=== PATIENT | female | born 1940 | race American Indian/Alaskan Native ===

== ENCOUNTER 2019-11-22 15:55 | Inpatient (IN) | payer MEDICARE ==
[2019-11-22] MEDS ORDERED: FAMOTIDINE 20 MG/2 ML INJ IV ONE (16:42)
[2019-11-22] MEDS ORDERED: ONDANSETRON 4 MG/2 ML INJ IV ONE (16:42)
[2019-11-22] MEDS ORDERED: MORPHINE 4 MG/1 ML INJ IV ONE ×2 (16:42→18:58)
[2019-11-22] MEDS ORDERED: SODIUM CHLORIDE 0.9% 1000 ML 1,000 ML IV ONE ×2 (16:43→18:44)
--- NOTE | 2019-11-22 16:47 | Emergency Department Report ---
ED Abdominal Pain HPI - General Chief Complaint: Abdominal Pain Stated Complaint: ABD PAIN PUI?: No Time Seen by Provider: 11/22/19 16:28 Source: patient, EMS Mode of arrival: Stretcher Limitations: No Limitations - History of Present Illness Initial Comments: 79-year-old female with no significant past medical history presents to the hospital complaining of epigastric pain x3 days. Pain is described as a moderate to severe constant pressure without aggravating or alleviating factors. Patient has decreased p.o. intake secondary to pain today. He denies nausea, vomiting, melena or hematochezia, hematemesis, diarrhea, or fever. Last bowel movement this morning was normal. Previous abdominal surgeries include appendectomy. Patient has medications filled on November 20 from an [facility] center. They include omeprazole, dicyclomine, vistaril, and polyethylene glycol 3350. Pt is not started taking the medication. Patient denies urinary symptoms. Patient also denies alcohol intake. MD Complaint: abdominal pain Severity scale (0 -10): 10 - Related Data Allergies Allergy/AdvReac Type Severity Reaction Status Date / Time No Known Allergies Allergy Unverified 11/22/19 17:17 ED Review of Systems ROS: Stated complaint: ABD PAIN Other details as noted in HPI Comment: All other systems reviewed and negative ED Past Medical Hx - Past Medical History Previous Medical History?: No Additional medical history: Congenital Heart Murmur - Surgical History Past Surgical History?: Yes Additional Surgical History: Appendectomy - Social History Smoking Status: Never Smoker Substance Use Type: None ED Physical Exam - General Limitations: No Limitations - Other Other exam information: General: No acute distress Head: Atraumatic Eyes: normal appearance ENT: Moist mucous membranes Neck: Normal appearance, no midline tenderness Chest: Clear to auscultation bilaterally CV: Regular rate and rhythm Abdomen: Soft, normal bowel sounds, generalized abdominal tenderness greatest in epigastric area and rlq. + rebound in rlq and epigastric area. Back: Normal inspection Extremity: Normal inspection, full range of motion Neuro: Alert O x 3, no facial asymmetry, speech clear, no gross motor sensory deficit Psych: Appropriate behavior Skin: No rash ED Course Vital Signs 11/22/19 11/22/19 11/22/19 16:12 16:15 16:16 Temperature 97.7 F Pulse Rate 73 79 82 Respiratory 22 18 23 Rate Blood Pressure Blood Pressure 134/74 [Left] O2 Sat by Pulse 98 97 97 Oximetry 11/22/19 11/22/19 11/22/19 16:20 16:30 16:46 Temperature 97.8 F Pulse Rate 74 71 74 Respiratory 23 20 Rate Blood Pressure 134/74 134/74 137/50 Blood Pressure [Left] O2 Sat by Pulse 97 97 Oximetry 11/22/19 11/22/19 11/22/19 17:00 17:15 17:30 Temperature Pulse Rate 74 74 74 Respiratory 26 H 27 H 16 Rate Blood Pressure 147/47 161/75 144/57 Blood Pressure [Left] O2 Sat by Pulse 99 98 97 Oximetry 11/22/19 11/22/19 17:46 18:48 Temperature Pulse Rate 83 84 Respiratory 21 18 Rate Blood Pressure 150/60 150/60 Blood Pressure [Left] O2 Sat by Pulse 98 96 Oximetry - Consultations Consultation #1: 11/22/19 19:[address] Nieves on-call surgeon. She will evaluate patient 11/22/19 19:37 Case d/w Cardiology Dr Rebolledo. will consult, elevation can be nonspecific. repeat to be drawn soon. ED Medical Decision Making - Lab Data Result diagrams: 11/22/19 16:50 11/22/19 16:50 - EKG Data -: EKG Interpreted by [facility] EKG shows normal: sinus rhythm, ST-T waves (lvh, repol abnl, no stemi) Rate: normal - Radiology Data Radiology results: report reviewed CT ABDOMEN AND PELVIS WITH CONTRAST INDICATION / CLINICAL INFORMATION: MAIN: gen abd pain greatest in epigastric 100cc [id number]. TECHNIQUE: Axial CT images were obtained through the abdomen and pelvis after IV contrast. All CT scans at this location are performed using CT dose reduction for ALARA by means of automated exposure control. COMPARISON: None available. FINDINGS: LOWER CHEST: Mild bibasilar atelectasis. LIVER: No significant abnormality. GALLBLADDER: Gallbladder is distended. No gallstones or wall thickening. BILE DUCTS: No significant abnormality. PANCREAS: No significant abnormality. SPLEEN: No significant abnormality. ADRENALS: No significant abnormality. RIGHT KIDNEY and URETER: No significant abnormality. LEFT KIDNEY and URETER: No significant abnormality. STOMACH and SMALL BOWEL: Small sliding-type hiatal hernia. There is a perforated ulcer of the distal stomach/gastric antrum. This ulcer is best seen on axial series 2 images 57-60. No distal small bowel abnormality. COLON: No significant abnormality. APPENDIX: No significant abnormality. PERITONEUM: Small amount of free fluid throughout the abdomen and pelvis, especially in the right upper quadrant. Moderate amount of pneumoperitoneum related to the perforated gastric ulcer. No fluid collection. LYMPH NODES: No significant adenopathy. AORTA and ARTERIES: No significant abnormality. IVC and VEINS: No significant abnormality. URINARY BLADDER: No significant abnormality. REPR ODUCTIVE ORGANS: No significant abnormality. ADDITIONAL FINDINGS: None. SKELETAL SYSTEM: No significant abnormality. IMPRESSION: 1. Perforated peptic ulcer of the distal stomach/gastric antrum with moderate pneumoperitoneum and small amount of free fluid in the abdomen and pelvis. - Medical Decision Making Patient provided initially Pepcid morphine, and Zofran. She required additional morphine Protonix also provided after CT report of perforated peptic ulcer. Patient n.p.o. IV fluids provided for dehydration. Zosyn provided empirically for perforated viscus. Patient also noted to have mild troponin elevation without ST elevation on EKG. Repeat troponin pending. Cardiology consulted. Aspirin contraindicated given active perforated peptic ulcer. hospitalist to admit. - Differential Diagnosis PUD, biliary colic, headache aneurysm, MO, constipation Critical Care Time: No Critical care attestation.: If time is entered above; I have spent that time in minutes in the direct care of this critically ill patient, excluding procedure time. ED Disposition Clinical Impression: Perforated peptic ulcer, Troponin level elevated Disposition: OP ADMIT IP TO THIS HOSP Is pt being admited?: Yes Condition: Stable Time of Disposition: 19:41 (Dr Davis/hosp)
[2019-11-22 17:22] LABS: Basophils % (Auto) 0.5 % (0.0-1.8); Hematocrit 45.8 % (30.3-42.9); Hemoglobin 15.1 gm/dl (10.1-14.3); Lymphocytes # (Auto) 1.1 K/mm3 (1.2-5.4); Lymphocytes % (Auto) 14.8 % (13.4-35.0); Mean Corpuscular HGB Conc 33 % (30-34); Mean Corpuscular Volume 93 fl (79-97); Monocytes # (Auto) 0.3 K/mm3 (0.0-0.8); Monocytes % (Auto) 4.1 % (0.0-7.3); Platelet Count 232 K/mm3 (140-440); Red Blood Count 4.94 M/mm3 (3.65-5.03); Red Cell Distribution Width 14.7 % (13.2-15.2)
[2019-11-22 17:37] LABS: Alanine Aminotransferase 12 units/L (7-56); Albumin 3.9 g/dL (3.9-5); BUN/Creatinine Ratio 53; Blood Urea Nitrogen 32 mg/dL (7-17); Calcium 9.5 mg/dL (8.4-10.2); Hemolysis Index 2
[2019-11-22] MEDS ORDERED: PANTOPRAZOLE 40 MG INJ IV ONE (19:14)
[2019-11-22] MEDS ORDERED: PIPERACIL/TAZOBACTA 4.5/NS 100 4.5 GM/100 ML VIAL IV ONE (19:19)
--- NOTE | 2019-11-22 19:19 | Cat Scan Report ---
CT ABDOMEN AND PELVIS WITH CONTRAST INDICATION / CLINICAL INFORMATION: MAIN: gen abd pain greatest in epigastric 100cc [id number]. TECHNIQUE: Axial CT images were obtained through the abdomen and pelvis after IV contrast. All CT scans at this location are performed using CT dose reduction for ALARA by means of automated exposure control. COMPARISON: None available. FINDINGS: LOWER CHEST: Mild bibasilar atelectasis. LIVER: No significant abnormality. GALLBLADDER: Gallbladder is distended. No gallstones or wall thickening. BILE DUCTS: No significant abnormality. PANCREAS: No significant abnormality. SPLEEN: No significant abnormality. ADRENALS: No significant abnormality. RIGHT KIDNEY and URETER: No significant abnormality. LEFT KIDNEY and URETER: No significant abnormality. STOMACH and SMALL BOWEL: Small sliding-type hiatal hernia. There is a perforated ulcer of the distal stomach/gastric antrum. This ulcer is best seen on axial series 2 images 57-60. No distal small danyelle l abnormality. COLON: No significant abnormality. APPENDIX: No significant abnormality. PERITONEUM: Small amount of free fluid throughout the abdomen and pelvis, especially in the right upp er quadrant. Moderate amount of pneumoperitoneum related to the perforated gastric ulcer. No fluid co llection. LYMPH NODES: No significant adenopathy. AORTA and ARTERIES: No significant abnormality. IVC and VEINS: No significant abnormality. URINARY BLADDER: No significant abnormality. REPRODUCTIVE ORGANS: No significant abnormality. ADDITIONAL FINDINGS: None. SKELETAL SYSTEM: No significant abnormality. IMPRESSION: 1. Perforated peptic ulcer of the distal stomach/gastric antrum with moderate pneumoperitoneum and sm all amount of free fluid in the abdomen and pelvis. CRITICAL RESULT: Time of Discovery (RESPIRATORY SCIENTIST/CDT): 6:10 PM Time of Communication (RESPIRATORY SCIENTIST/CDT): 6:13 PM Licensed Practitioner Receiving Report: Dr. Paul in the ED Read Back Performed: Not applicable. Signer Name: Javier Hsieh MD Signed: 11/22/2019 7:14 PM Workstation Name: [email or web address]
[2019-11-22 19:43] LABS: Chol/HDL Ratio 4.67 %
[2019-11-22] MEDS ORDERED: HYDROmorphone 1 MG/1 ML INJ IV ONE ×2 (20:56→22:49)
--- NOTE | 2019-11-22 21:37 | Consultation ---
History of Present Illness Consult date: 11/22/19 Reason for consult: abdominal pain - History of present illness History of present illness: 79 year old female with no significant self reported medical history presented to ED with a 7 day history of abdominal pain. She rates it as 10/10 for seven days and came to the hospital after not getting relief with OTC pain medication. The pain is worse in the epigastric and RLQ areas. She was seen at an intermediate care and prescribed omeprazole, and bentyl for which she has not taken. She denies any nausea or vomiting. CT scan showed free air consistent with perforated gastric ulcer. small amount of free fluid. Past History Past Surgical History: appendectomy Social history: no significant social history Medications and Allergies Allergies Allergy/AdvReac Type Severity Reaction Status Date / Time No Known Allergies Allergy Unverified 11/22/19 17:17 Review of Systems - Constitutional no weight loss, no weight gain - Cardiovascular no chest pain, no orthopnea - Respiratory no cough - Gastrointestinal abdominal pain, constipation, no nausea, no vomiting, no melena, no hematochezia Exam Vital Signs Pulse Resp Pulse Ox 73 22 98 11/22/19 16:12 11/22/19 16:12 11/22/19 16:12 - General physical appearance Positive: well developed, no distress, moderate pain - Respiratory Positive: normal expansion, normal respiratory effort - Cardiovascular Rhythm: regular Heart Sounds: Present: S1 & S2 - Extremities Extremities: no ischemia - Abdomen Abdomen: Present: soft, guarding. Absent: tender, distended, rebound, rigid - Neurologic Neurologic: alert and oriented to time, place and person - Psychiatric Psychiatric: appropriate mood/affect, cooperative Results - Labs 11/22/19 16:50 11/22/19 16:50 Abnormal lab results 11/22/19 11/22/19 11/22/19 Range/Units 16:50 16:50 16:50 Hgb 15.1 H (10.1-14.3) gm/dl Hct 45.8 H (30.3-42.9) % Lymph # 1.1 L (1.2-5.4) K/mm3 Seg Neutrophils % 80.6 H (40.0-70.0) % Carbon Dioxide 18 L (22-30) mmol/L BUN 32 H (7-17) mg/dL Creatinine 0.6 L (0.7-1.2) mg/dL Glucose 115 H (65-100) mg/dL Troponin T 0.049 H (0.00-0.029) ng/mL Cholesterol 229 H (50-199) mg/dL LDL Cholesterol Direct 168 H (50-130) mg/dL 11/22/19 Range/Units 19:53 Hgb (10.1-14.3) gm/dl Hct (30.3-42.9) % Lymph # (1.2-5.4) K/mm3 Seg Neutrophils % (40.0-70.0) % Carbon Dioxide (22-30) mmol/L BUN (7-17) mg/dL Creatinine (0.7-1.2) mg/dL Glucose (65-100) mg/dL Troponin T 0.043 H (0.00-0.029) ng/mL Cholesterol (50-199) mg/dL LDL Cholesterol Direct (50-130) mg/dL Diabetes panel 11/22/19 11/22/19 Range/Units 16:50 16:50 Sodium 138 (137-145) mmol/L Potassium 3.8 (3.6-5.0) mmol/L Chloride 100.1 (98-107) mmol/L Carbon Dioxide 18 L (22-30) mmol/L BUN 32 H (7-17) mg/dL Creatinine 0.6 L (0.7-1.2) mg/dL Glucose 115 H (65-100) mg/dL Calcium 9.5 (8.4-10.2) mg/dL AST 20 (5-40) units/L ALT 12 (7-56) units/L Alkaline Phosphatase 68 (35-129) units/L Total Protein 7.0 (6.3-8.2) g/dL Albumin 3.9 (3.9-5) g/dL Triglycerides 91 (2-149) mg/dL HDL Cholesterol 49 (40-59) mg/dL Calcium panel 11/22/19 Range/Units 16:50 Calcium 9.5 (8.4-10.2) mg/dL Albumin 3.9 (3.9-5) g/dL Pituitary panel 11/22/19 Range/Units 16:50 Sodium 138 (137-145) mmol/L Potassium 3.8 (3.6-5.0) mmol/L Chloride 100.1 (98-107) mmol/L Carbon Dioxide 18 L (22-30) mmol/L BUN 32 H (7-17) mg/dL Creatinine 0.6 L (0.7-1.2) mg/dL Glucose 115 H (65-100) mg/dL Calcium 9.5 (8.4-10.2) mg/dL Adrenal panel 11/22/19 Range/Units 16:50 Sodium 138 (137-145) mmol/L Potassium 3.8 (3.6-5.0) mmol/L Chloride 100.1 (98-107) mmol/L Carbon Dioxide 18 L (22-30) mmol/L BUN 32 H (7-17) mg/dL Creatinine 0.6 L (0.7-1.2) mg/dL Glucose 115 H (65-100) mg/dL Calcium 9.5 (8.4-10.2) mg/dL Total Bilirubin 0.80 (0.1-1.2) mg/dL AST 20 (5-40) units/L ALT 12 (7-56) units/L Alkaline Phosphatase 68 (35-129) units/L Total Protein 7.0 (6.3-8.2) g/dL Albumin 3.9 (3.9-5) g/dL - Imaging CT scan - abdomen: report reviewed, image reviewed CT scan - pelvis: report reviewed, image reviewed Assessment and Plan 79 year old female with perforated viscous. likely gastric ulcer. Afbrile, stable, no leukycytosis who appears non toxic. Discussed condition and treatment with patient who asked if she had to have surgery. Because she is stable, and other metric still normal there is a potential that her perforation has already sealed. Ordered CT scan with gastrograffin to further evaluate need for emergent surgery vs close observation and reassessment. Pt admitted to hospital and will review CT scan to determine next plan of care. Pt expressed understanding.
[2019-11-22] MEDS ORDERED: HYDROmorphone 1 MG/1 ML INJ ONE (22:52)
--- NOTE | 2019-11-22 22:58 | Cat Scan Report ---
CT ABDOMEN AND PELVIS WITHOUT CONTRAST HISTORY: MAIN: perforated PUD, 30CC GASTROGRAFIN IN 20OZ WATER. COMPARISON: CT abdomen/pelvis from earlier today TECHNIQUE: CT images of the abdomen and pelvis were obtained without administration of intravenous co ntrast. All CT scans at this location are performed using CT dose reduction for ALARA by means of au tomated exposure control. FINDINGS: Lungs/bones: There is mild streaky bibasilar airspace disease once again. Degenerative changes are p resent throughout the spine and pelvis with no acute osseous abnormality identified. Abdomen/pelvis: There is again a perforated ulcer in the region of the duodenal bulb with free spill of contrast into the region of the gallbladder fossa and along the lower margin of the liver, as wel l as the right paracolic cutter. Moderate volume free air again noted. The liver, gallbladder, spleen, pancreas, adrenals, and kidneys show no acute abnormality. Urinary bladder is distended with contrast. There is a small amount of contrast spill into the pelvis . The uterus is unremarkable. No acute colonic abnormality identified. IMPRESSION: 1. Redemonstration of perforation and inflammatory change in the region of the duodenal bulb, with mo derate free air and contrast spill ultimately tracking along the right paracolic gutter. Signer Name: Federico Torres MD Signed: 11/22/2019 10:53 PM Workstation Name: [id number]
--- NOTE | 2019-11-22 23:26 | Event Note ---
Date: 11/22/19 CT scan shows free extravasation of contrast. discussed with patient. Booking patient for surgery. She signed informed consent who expressed understanding of risks and benefits.
[2019-11-23] MEDS ORDERED: ONDANSETRON 4 MG/2 ML INJ ONE (00:23)
[2019-11-23] MEDS ORDERED: fentaNYL 100 MCG/2 ML INJ ONE ×2 (00:23→01:36)
[2019-11-23] MEDS ORDERED: SUCCINYLCHOLINE CHLORIDE 200 MG/10 ML INJ MDV ONE (00:23)
[2019-11-23] MEDS ORDERED: LIDOCAINE MPF (2%) 20 MG/1 ML VIAL 5 ML ONE (00:23)
[2019-11-23] MEDS ORDERED: ROCURONIUM 50 MG/5 ML INJ IV ONE (00:23)
[2019-11-23] MEDS ORDERED: propofoL 200 MG/20 ML VIAL IV ONE (00:24)
--- NOTE | 2019-11-23 00:24 | Anesthesia Consultation ---
Anesthesia Consult and Med Hx Date of service: 11/23/19 - Airway Anesthetic Teeth Evaluation: Poor (Several missing, all solid per patient) ROM Head & Neck: Adequate Mental/Hyoid Distance: Adequate Mallampati Class: Class II Intubation Access Assessment: Probably Good - Pulmonary Exam CTA: Yes - Cardiac Exam Cardiac Exam: RRR - Pre-Operative Health Status ASA Pre-Surgery Classification: ASA2, Emergency Proposed Anesthetic Plan: General
--- NOTE | 2019-11-23 00:25 | Anesthesia Day of Surgery ---
Anesthesia Day of Surgery - Day of Surgery Patient Examined: Yes Patient H&P Reviewed: Yes Patient is NPO: Yes
[2019-11-23 00:28] LABS: Bilirubin,Urine NEG (Negative); Blood,Urine NEG (Negative); Color,Urine Yellow (Yellow); Mucus,Urine 1+ /HPF; Protein,Urine <15 mg/dL mg/dL (Negative); Urobilinogen,Urine < 2.0 mg/dL (<2.0)
[2019-11-23] MEDS ORDERED: LIDOCAINE (1%) 10 MG/1 ML VIAL 20 ML MDV ONE (00:44)
[2019-11-23] MEDS ORDERED: BUPIVACAINE-EPINEPHRINE/PF 0.5%-1:200,000 (30 ML) VIAL INFILTRATI ONE ×2 (00:44→01:24)
[2019-11-23] MEDS ORDERED: ceFAZolin 1 GM VIAL ONE (00:59)
[2019-11-23] MEDS ORDERED: metroNIDAZOLE/NS 500 MG/100 ML 500 MG/100 ML BAG IV ONE (01:05)
[2019-11-23] MEDS ORDERED: LIDOCAINE (1%) 10 MG/1 ML VIAL 20 ML MDV INFILTRATI ONE (01:24)
[2019-11-23] MEDS ORDERED: SODIUM CHLORIDE 0.9% IRRIG SOLN 2000 ML IR ONE (01:25)
[2019-11-23] MEDS ORDERED: SODIUM CHLORIDE 0.9% IRR 1,000 ML BOTTLE IR ONE (01:25)
[2019-11-23] MEDS ORDERED: PHENYLEPHRINE/NS 1,000 MCG/10 ML SYRINGE (OR USE) IV ONE (02:00)
[2019-11-23] MEDS ORDERED: NEOSTIGMINE 10MG/10 ML INJ MDV ONE (02:02)
[2019-11-23] MEDS ORDERED: GLYCOPYRROLATE 0.4 MG/2 ML INJ ONE (02:02)
--- NOTE | 2019-11-23 02:35 | Operative Report ---
Operative Report Operative Report: Date: November 23, 2019 Surgeon: gabriel Nieves MD Brand Analyst surgeon: Adrienne Galindo DO Procedure:1. Diagnostic laparoscopy 2. Rex patch repair of perforated gastric ulcer 3. Abdominal lavage Anesthesia: General with endotracheal tube intubation EBL: Less than 5 mL Preop diagnosis: Perforated viscus Postop diagnosis: Perforated gastric ulcer Findings: Less than 1 cm punctate perforation on the anterior side of the pylorus with free abdominal fluid Indication: Patient is an 79-year-old female who presented to the emergency room with a one-week history of worsening epigastric pain. CT scan showed free air consistent with suspected perforated gastric ulcer. Patient had no leukocytosis, no tachycardia, and elevated troponins. At this time it was decided that her perforation may have sealed and so we decided to repeat CT scan with oral contrast that showed extravasation confirming active leak from perforation. Patient was then consented for emergent procedure. Details of procedure: Patient was brought into the OR suite and laid in supine position. Bilateral lower extremity SCDs were placed. General anesthesia was induced via successful endotracheal tube intubation. A Barcenas catheter was inserted under sterile conditions. Patient abdomen was prepped and draped in sterile fashion. After a timeout was performed a Veress needle was used to establish visit at the umbilicus to insufflate the abdomen to a pressure of 15 mmHg. After this using a 5 mm Optiview trocar access was gained to the abdominal cavity. There was no gross injury to any intra-abdominal structures appreciated. 3 working trochars were placed under direct visualization a 5 mm in the right midaxillary line, 12 mm trocar in the right midabdomen, and 5 mm in the left midaxillary line. There was noted to be free fluid inflammatory tissue around the pylorus. These were taken down, and there was noted to be a less than 1 cm punctate hole on the anterior side of the pylorus. A Rex patch using a tongue of omentum was secured over the perforation using 2 sutures. The abdomen was then irrigated with normal saline until the effluent was clear. A 19 [place] round drain was placed over the Rex patch and exited out of the patient's left side. Anesthesia passed a NG tube during the procedure and patient was verified in the antrum. Patient's abdomen was desufflated via the smoke evacuator as per COVID-19 guidelines. Trochars were removed, the 12 mm trocar fascia was closed with an 0 Vicryl. The drain was secured with a 2-0 nylon. All skin incisions were closed with 4-0 Monocryl. Patient was awoken extubated taken to recovery stable condition. All counts were correct.
[2019-11-23] MEDS ORDERED: LACTATED RINGERS 1,000 ML ONE (02:58)
--- NOTE | 2019-11-23 03:08 | Post Anesthesia Evaluation ---
- Post Anesthesia Evaluation Patient Participated: Yes Airway Patent: Yes Stable Respiratory Function: Yes Nausea/Vomiting: No Temp > 96.8F: Yes Pain Manageable: Yes Adequeate Hydration: Yes Anesthesia Complications: No
--- NOTE | 2019-11-23 03:12 | Event Note ---
Date: 11/22/19 See history and physical in the reports Stomach perforation Going for emergent surgery Surgery consult appreciated
--- NOTE | 2019-11-23 03:41 | History and Physical Report ---
CHIEF COMPLAINT: Abdominal pain for 3 days. HISTORY OF PRESENT ILLNESS: An 79-year-old with no significant past medical history, comes in for epigastric pain of 3 days' duration. Pain is about 10 on a scale of 1-10. Denies nausea, vomiting. Pain is severe. The patient had medications filled on 11/21/2019 from [facility]. No NSAIDs, BC powders or Goody powders. PAST MEDICAL HISTORY: No significant past medical history. PAST SURGICAL HISTORY: Appendectomy. SOCIAL HISTORY: Does not smoke. FAMILY HISTORY: Noncontributory. REVIEW OF SYSTEMS: Significant for epigastric pain, which is severe for the last 3 days. PHYSICAL EXAMINATION: GENERAL: Elderly female, cooperative during examination, mild distress. VITAL SIGNS: Blood pressure is 170/86, temperature is 97.2, pulse is 82, respirations are 12, sats are 92% to 99%. HEENT: Unremarkable. Pupils equal and reactive. NECK: Supple, no lymphadenopathy, no thyromegaly. LUNGS: Clear to auscultation and percussion. Good air entry. CARDIOVASCULAR: S1, S2 heard. No gallop, no murmur, no rub. Apical impulse in left fifth intercostal space and midclavicular line. ABDOMEN: Tender in the epigastric region. Guarding present. Rigidity present. Bowel sounds are decreased. Hernial orifices are normal. EXTREMITIES: Good pedal pulses. No pedal edema. CENTRAL NERVOUS SYSTEM: Alert and oriented x 4, nonfocal exam. SKIN: Normal. DIAGNOSTIC DATA: Abdominal CAT scan shows perforated peptic ulcer of the distal stomach at the gastric antrum. There is moderate pneumoperitoneum and small amount of free fluid in the abdomen and pelvis. ASSESSMENT AND PLAN: 1. Stomach perforation. The patient is being taken for emergent surgery. Dr. Nieves, Surgery consulted. IV fluids and IV Protonix for the time being. Pain management controlled by Dilaudid for pain control. 2. Deep venous thrombosis prophylaxis, SCDs and gastrointestinal prophylaxis. JOB# [id number] VSM/NTS
[2019-11-23] MEDS ORDERED: ONDANSETRON 4 MG/2 ML INJ IV PRN (04:24)
[2019-11-23] MEDS ORDERED: FLUCONAZOLE 200 MG 200 MG/100 ML BAG IV ONE (04:24)
[2019-11-23] MEDS: PANTOPRAZOLE 80 MG in SODIUM CHLORIDE 0.9% 100 ML IV SCH (05:30)
[2019-11-23] MEDS: PIPERACILLIN/TAZOBACTAM 3.375 3.375 GM/50 ML BAG IV SCH ×3 (05:30→22:57)
[2019-11-23 06:15] LABS: Basophils % (Auto) 0.2 % (0.0-1.8); Hematocrit 41.9 % (30.3-42.9); Hemoglobin 14.2 gm/dl (10.1-14.3); Lymphocytes # (Auto) 0.9 K/mm3 (1.2-5.4); Mean Corpuscular HGB Conc 34 % (30-34); Mean Corpuscular Volume 92 fl (79-97); Monocytes # (Auto) 0.3 K/mm3 (0.0-0.8); Monocytes % (Auto) 3.9 % (0.0-7.3); Platelet Count 195 K/mm3 (140-440); Red Blood Count 4.56 M/mm3 (3.65-5.03); Red Cell Distribution Width 14.9 % (13.2-15.2)
[2019-11-23 06:37] LABS: BUN/Creatinine Ratio 31; Blood Urea Nitrogen 22 mg/dL (7-17); Calcium 8.5 mg/dL (8.4-10.2); Hemolysis Index 9
--- NOTE | 2019-11-23 08:55 | Progress Note ---
Assessment and Plan Assessment and plan: Perforated gastric ulcer s/p repair continue Dilaudid for pain management Protonix surgeon following Hypertensive urgency patient states she does have elevated BP some times but denies hypertension BP elevated currently even when she is not in pain. Likely has undiagnosed hypertension Start Clonidine patch since NPO. Add hydralazine iv prn Elevated Troponin cardiology consulted No chest pain order EKG, Echo History Interval history: Patient had repair of perforated gastric ulcer Hospitalist Physical - Physical exam Narrative exam: GEN: Not in acute distress, obese, lying in bed HEENT: Normocephalic, atraumatic, Neck: supple, No JVD Lungs: Clear to auscultation Heart;S1 and S2 reg, no murmurs, rubs or gallop Abd:soft, mild tender, dressing over abd, surgical drain, Ext: No edema, no clubbing, no cyanosis, Neuro: Awake,alert,oriented X3 , no focal signs, - Constitutional Vitals: Temp Pulse Resp BP Pulse Ox 97.7 F 92 H 18 160/69 100 11/23/19 08:12 11/23/19 08:12 11/23/19 08:12 11/23/19 08:12 11/23/19 08:12 Results - Labs CBC & Chem 7: 11/23/19 05:59 11/23/19 05:59 Labs: Laboratory Last Values WBC 6.9 K/mm3 (4.5-11.0) 11/23/19 05:59 RBC 4.56 M/mm3 (3.65-5.03) 11/23/19 05:59 Hgb 14.2 gm/dl (10.1-14.3) 11/23/19 05:59 Hct 41.9 % (30.3-42.9) 11/23/19 05:59 MCV 92 fl (79-97) 11/23/19 05:59 MCH 31 pg (28-32) 11/23/19 05:59 MCHC 34 % (30-34) 11/23/19 05:59 RDW 14.9 % (13.2-15.2) 11/23/19 05:59 Plt Count 195 K/mm3 (140-440) 11/23/19 05:59 Lymph % (Auto) 13.0 % (13.4-35.0) L 11/23/19 05:59 Pershing % (Auto) 3.9 % (0.0-7.3) 11/23/19 05:59 Eos % (Auto) 0.0 % (0.0-4.3) 11/23/19 05:59 Baso % (Auto) 0.2 % (0.0-1.8) 11/23/19 05:59 Lymph # 0.9 K/mm3 (1.2-5.4) L 11/23/19 05:59 Pershing # 0.3 K/mm3 (0.0-0.8) 11/23/19 05:59 Eos # 0.0 K/mm3 (0.0-0.4) 11/23/19 05:59 Baso # 0.0 K/mm3 (0.0-0.1) 11/23/19 05:59 Seg Neutrophils % 82.9 % (40.0-70.0) H 11/23/19 05:59 Seg Neutrophils # 5.7 K/mm3 (1.8-7.7) 11/23/19 05:59 Sodium 136 mmol/L (137-145) L 11/23/19 05:59 Potassium 4.4 mmol/L (3.6-5.0) 11/23/19 05:59 Chloride 108.3 mmol/L (98-107) H 11/23/19 05:59 Carbon Dioxide 18 mmol/L (22-30) L 11/23/19 05:59 Anion Gap 14 mmol/L 11/23/19 05:59 BUN 22 mg/dL (7-17) H 11/23/19 05:59 Creatinine 0.7 mg/dL (0.7-1.2) 11/23/19 05:59 Estimated GFR > 60 ml/min 11/23/19 05:59 BUN/Creatinine Ratio 31 % 11/23/19 05:59 Glucose 180 mg/dL (65-100) H 11/23/19 05:59 Calcium 8.5 mg/dL (8.4-10.2) 11/23/19 05:59 Total Bilirubin 0.80 mg/dL (0.1-1.2) 11/22/19 16:50 AST 20 units/L (5-40) 11/22/19 16:50 ALT 12 units/L (7-56) 11/22/19 16:50 Alkaline Phosphatase 68 units/L (35-129) 11/22/19 16:50 Troponin T 0.059 ng/mL (0.00-0.029) H D 11/22/19 22:57 Total Protein 7.0 g/dL (6.3-8.2) 11/22/19 16:50 Albumin 3.9 g/dL (3.9-5) 11/22/19 16:50 Albumin/Globulin Ratio 1.3 % 11/22/19 16:50 Triglycerides 91 mg/dL (2-149) 11/22/19 16:50 Cholesterol 229 mg/dL (50-199) H 11/22/19 16:50 LDL Cholesterol Direct 168 mg/dL (50-130) H 11/22/19 16:50 HDL Cholesterol 49 mg/dL (40-59) 11/22/19 16:50 Cholesterol/HDL Ratio 4.67 % 11/22/19 16:50 Lipase 52 units/L (13-60) 11/22/19 16:50 Urine Color Yellow (Yellow) 11/22/19 23:40 Urine Turbidity Clear (Clear) 11/22/19 23:40 Urine pH 5.0 (5.0-7.0) 11/22/19 23:40 Ur Specific Freedom 1.060 (1.003-1.030) H 11/22/19 23:40 Urine Protein <15 mg/dl mg/dL (Negative) 11/22/19 23:40 Urine Glucose (UA) Neg mg/dL (Negative) 11/22/19 23:40 Urine Ketones 80 mg/dL (Negative) 11/22/19 23:40 Urine Blood Neg (Negative) 11/22/19 23:40 Urine Nitrite Neg (Negative) 11/22/19 23:40 Urine Bilirubin Neg (Negative) 11/22/19 23:40 Urine Urobilinogen < 2.0 mg/dL (<2.0) 11/22/19 23:40 Ur Leukocyte Esterase Neg (Negative) 11/22/19 23:40 Urine WBC (Auto) 2.0 /HPF (0.0-6.0) 11/22/19 23:40 Urine RBC (Auto) 2.0 /HPF (0.0-6.0) 11/22/19 23:40 U Epithel Cells (Auto) 9.0 /HPF (0-13.0) 11/22/19 23:40 Urine Mucus 1+ /HPF 11/22/19 23:40 Barcenas/IV: Voiding Method Indwelling Catheter IV Catheter Type [Left Forearm INT / Saline Lock ] IV Catheter Type [Right INT / Saline Lock Antecubital] IV Catheter Type [Left Wrist] INT / Saline Lock Active Medications - Current Medications Current Medications: Generic Name Dose Route Start Last Admin Trade Name Freq PRN Reason Stop Dose Admin Clonidine HCl 0.2 mg 11/23/19 09:00 Catapres-Tts Patch TD Pedroza CANDIDA Hydralazine HCl 10 mg 11/23/19 10:00 Apresoline IV Q4HR PRN SBP>160 or DBP>110 Hydromorphone HCl 0.5 mg 11/23/19 04:24 Dilaudid IV Q3H PRN Pain , Severe (7-10) Pantoprazole Sodium 80 mg/ 100 mls @ 10 mls/hr 11/23/19 04:24 11/23/19 05:30 Sodium Chloride IV 8 mg/hr DIRECT CANDIDA 10 mls/hr Administration 8 MG/HR Piperacillin Sod/Tazobactam Sod 3.375 gm in 50 mls @ 100 mls/hr 11/23/19 06:00 11/23/19 05:30 Zosyn/Ns 3.375gm/50ml IV 100 mls/hr Q8HR CANDIDA Administration Protocol Lactated Ringer's 1,000 mls @ 125 mls/hr 11/23/19 04:24 Lactated Ringers IV DIRECT CANDIDA Ondansetron HCl 4 mg 11/23/19 04:24 Zofran IV Q4H PRN Nausea And Vomiting
[2019-11-23] MEDS ORDERED: cloNIDine TTS 0.2 MG/24 HR PATCH TD SCH (09:00)
--- NOTE | 2019-11-23 10:49 | Progress Note ---
Assessment and Plan POd#0 s/p laparoscopic grahm patch repair of perforated gastric ulcer. Afebrile and stable. Getting cardiology work up for elevated troponins. Will keep NPO, NGT to LIWS. if continues to recover well, will get UGI in 48 hours to evaluate healing of repair. If negative for active leak will removed NGT and start clear liquids then. Consulted ID to give recommendations for antibiotics. Currently on zosyn and diflucan. Subjective Date of service: 11/23/19 Patient Reports: Positive: no new complaints (Pt says the pain that brought her to the hospital has improved. ), feels better Objective Vital Signs - 12hr 11/22/19 11/22/19 11/22/19 23:00 23:28 23:30 Temperature Pulse Rate 83 76 75 Respiratory 17 13 13 Rate Blood Pressure 161/72 202/98 182/81 O2 Sat by Pulse 87 90 89 Oximetry 11/22/19 11/22/19 11/23/19 23:40 23:50 00:00 Temperature Pulse Rate 81 99 H 98 H Respiratory 16 12 14 Rate Blood Pressure 182/81 182/81 170/86 O2 Sat by Pulse 93 96 94 Oximetry 11/23/19 11/23/19 11/23/19 00:10 00:20 02:33 Temperature 97.8 F Pulse Rate 82 82 101 H Respiratory 13 12 14 Rate Blood Pressure 170/86 170/86 174/106 O2 Sat by Pulse 92 92 99 Oximetry 11/23/19 11/23/19 11/23/19 02:38 02:43 02:48 Temperature Pulse Rate 79 79 78 Respiratory 12 12 12 Rate Blood Pressure 183/61 171/56 151/52 O2 Sat by Pulse 99 100 99 Oximetry 11/23/19 11/23/19 11/23/19 03:03 05:35 05:54 Temperature 98.2 F 97.6 F Pulse Rate 82 90 Respiratory 16 20 16 Rate Blood Pressure 151/84 169/77 O2 Sat by Pulse 99 100 98 Oximetry 11/23/19 08:12 Temperature 97.7 F Pulse Rate 92 H Respiratory 18 Rate Blood Pressure 160/69 O2 Sat by Pulse 100 Oximetry - General physical appearance well developed, no distress, no pain - Respiratory normal expansion, normal respiratory effort - Abdomen soft, other (incisions c/d/i, SERGE drain with sero-sanguinous drainage, appropriatley tender to palaption. NGT with small amount of bilious fluid) - Labs 11/23/19 05:59 11/23/19 05:59 Diabetes panel 11/22/19 11/22/19 11/23/19 Range/Units 16:50 16:50 05:59 Sodium 138 136 L (137-145) mmol/L Potassium 3.8 4.4 (3.6-5.0) mmol/L Chloride 100.1 108.3 H (98-107) mmol/L Carbon Dioxide 18 L 18 L (22-30) mmol/L BUN 32 H 22 H (7-17) mg/dL Creatinine 0.6 L 0.7 (0.7-1.2) mg/dL Glucose 115 H 180 H (65-100) mg/dL Calcium 9.5 8.5 (8.4-10.2) mg/dL AST 20 (5-40) units/L ALT 12 (7-56) units/L Alkaline Phosphatase 68 (35-129) units/L Total Protein 7.0 (6.3-8.2) g/dL Albumin 3.9 (3.9-5) g/dL Triglycerides 91 (2-149) mg/dL HDL Cholesterol 49 (40-59) mg/dL Calcium panel 11/22/19 11/23/19 Range/Units 16:50 05:59 Calcium 9.5 8.5 (8.4-10.2) mg/dL Albumin 3.9 (3.9-5) g/dL Pituitary panel 11/22/19 11/23/19 Range/Units 16:50 05:59 Sodium 138 136 L (137-145) mmol/L Potassium 3.8 4.4 (3.6-5.0) mmol/L Chloride 100.1 108.3 H (98-107) mmol/L Carbon Dioxide 18 L 18 L (22-30) mmol/L BUN 32 H 22 H (7-17) mg/dL Creatinine 0.6 L 0.7 (0.7-1.2) mg/dL Glucose 115 H 180 H (65-100) mg/dL Calcium 9.5 8.5 (8.4-10.2) mg/dL Adrenal panel 11/22/19 11/23/19 Range/Units 16:50 05:59 Sodium 138 136 L (137-145) mmol/L Potassium 3.8 4.4 (3.6-5.0) mmol/L Chloride 100.1 108.3 H (98-107) mmol/L Carbon Dioxide 18 L 18 L (22-30) mmol/L BUN 32 H 22 H (7-17) mg/dL Creatinine 0.6 L 0.7 (0.7-1.2) mg/dL Glucose 115 H 180 H (65-100) mg/dL Calcium 9.5 8.5 (8.4-10.2) mg/dL Total Bilirubin 0.80 (0.1-1.2) mg/dL AST 20 (5-40) units/L ALT 12 (7-56) units/L Alkaline Phosphatase 68 (35-129) units/L Total Protein 7.0 (6.3-8.2) g/dL Albumin 3.9 (3.9-5) g/dL
--- NOTE | 2019-11-23 13:50 | Consultation ---
History of Present Illness Consult date: 11/23/19 Requesting physician: SARAHY EDMONDSON Consult reason: elevated troponin History of present illness: The patient claims that she lost her son to the Covid virus about a week ago in [place]. Since then, she became severely emotionally stressed. She presented to [facility] with a 2-day history of epigastric pain. She had no nausea or vomiting until presenting to the hospital. She denies chest pain. Abdominal CT scan performed in the emergency department revealed perforated peptic ulcer of the distal stomach/gastric antrum with moderate pneumoperitoneum. She subsequently underwent Rex patch repair. Her Troponin levels are mildly elevated. Echocardiogram performed today revealed normal LV systolic function with no si gnificant wall motion abnormalities. Past History Past Medical History: hypertension (She stopped taking meds a long tme ago when she felt that her BP was good.) Past Surgical History: appendectomy Social history: denies: smoking, alcohol abuse Family history: CAD Medications and Allergies Allergies Allergy/AdvReac Type Severity Reaction Status Date / Time No Known Allergies Allergy Verified 11/22/19 22:53 Active Meds: Active Medications Clonidine HCl (Catapres-Tts Patch) 0.2 mg TD Pedroza CANDIDA Last Admin: 11/23/19 11:16 Dose: 0.2 mg Documented by: Hydralazine HCl (Apresoline) 10 mg IV Q4HR PRN PRN Reason: SBP>160 or DBP>110 Hydromorphone HCl (Dilaudid) 0.5 mg IV Q3H PRN PRN Reason: Pain , Severe (7-10) Pantoprazole Sodium 80 mg/ (Sodium Chloride) 100 mls @ 10 mls/hr IV DIRECT CANDIDA Last Admin: 11/23/19 05:30 Dose: 8 mg/hr, 10 mls/hr Documented by: Piperacillin Sod/Tazobactam Sod (Zosyn/Ns 3.375gm/50ml) 3.375 gm in 50 mls @ 100 mls/hr IV Q8HR CANDIDA; Protocol Last Admin: 11/23/19 05:30 Dose: 100 mls/hr Documented by: Lactated Ringer's (Lactated Ringers) 1,000 mls @ 125 mls/hr IV DIRECT CANDIDA Ondansetron HCl (Zofran) 4 mg IV Q4H PRN PRN Reason: Nausea And Vomiting Review of Systems Constitutional: no fever, no chills Ears, nose, mouth and throat: no ear pain, no hoarseness, no sore throat Cardiovascular: no chest pain, no palpitations, no lightheadedness, no shortness of breath Respiratory: no cough, no hemoptysis, no shortness of breath Gastrointestinal: abdominal pain, no nausea, no vomiting Genitourinary Female: no dysuria, no urinary frequency Rectal: no pain, no bleeding Musculoskeletal: no neck stiffness, no neck pain, no myalgias Integumentary: no rash, no pruritis Neurological: no weakness, no parathesias, no headaches Endocrine: no cold intolerance, no heat intolerance Hematologic/Lymphatic: no easy bruising, no easy bleeding Allergic/Immunologic: no urticaria, no wheezing Physical Examination Vital Signs Last Vital Signs Temp 98.4 F 11/23/19 11:14 Pulse 83 11/23/19 11:14 Resp 18 11/23/19 12:39 BP 154/64 11/23/19 11:14 Pulse Ox 100 11/23/19 11:14 General appearance: no acute distress HEENT: Positive: EOMI, Normocephaly, Mucus Membranes Moist Neck: Positive: neck supple, trachea midline Cardiac: Positive: Reg Rate and Rhythm, S1/S2 Lungs: Positive: clear to auscultation Neuro: Positive: Grossly Intact Abdomen: Positive: Soft, Tender Skin: Positive: Clear. Negative: Rash Musculoskeletal: Normal Range of Motion Extremities: Present: normal. Absent: edema Results 11/23/19 05:59 11/23/19 05:59 Cardiac Enzymes 11/22/19 Range/Units 16:50 AST 20 (5-40) units/L Lipids 11/22/19 Range/Units 16:50 Triglycerides 91 (2-149) mg/dL Cholesterol 229 H (50-199) mg/dL HDL Cholesterol 49 (40-59) mg/dL Cholesterol/HDL Ratio 4.67 % CBC 11/22/19 11/23/19 Range/Units 16:50 05:59 WBC 7.2 6.9 (4.5-11.0) K/mm3 RBC 4.94 4.56 (3.65-5.03) M/mm3 Hgb 15.1 H 14.2 (10.1-14.3) gm/dl Hct 45.8 H 41.9 (30.3-42.9) % Plt Count 232 195 (140-440) K/mm3 Lymph # 1.1 L 0.9 L (1.2-5.4) K/mm3 Gaines # 0.3 0.3 (0.0-0.8) K/mm3 Eos # 0.0 0.0 (0.0-0.4) K/mm3 Baso # 0.0 0.0 (0.0-0.1) K/mm3 Comprehensive Metabolic Panel 11/22/19 11/23/19 Range/Units 16:50 05:59 Sodium 138 136 L (137-145) mmol/L Potassium 3.8 4.4 (3.6-5.0) mmol/L Chloride 100.1 108.3 H (98-107) mmol/L Carbon Dioxide 18 L 18 L (22-30) mmol/L BUN 32 H 22 H (7-17) mg/dL Creatinine 0.6 L 0.7 (0.7-1.2) mg/dL Glucose 115 H 180 H (65-100) mg/dL Calcium 9.5 8.5 (8.4-10.2) mg/dL AST 20 (5-40) units/L ALT 12 (7-56) units/L Alkaline Phosphatase 68 (35-129) units/L Total Protein 7.0 (6.3-8.2) g/dL Albumin 3.9 (3.9-5) g/dL - Imaging and Cardiology EKG: image reviewed EKG interpretations - EKG Sinus rhythms and dysrhythmias: sinus rhythm Chamber hypertrophy or enlargement: left ventricular hypertro Repolarization changes or abnormalities: repolarization abn secondary to ventricular hypertrophy Assessment and Plan Elevated troponin level in this lady appears nonspecific so far, and could be associated with acute stress and acute illness. I will obtain another level today. Topical and parenteral antihypertensive medications for now while NPO. - Patient Problems (1) Elevated troponin level Current Visit: Yes Status: Acute (2) Hypertension Current Visit: Yes Status: Chronic Qualifiers: Hypertension type: essential hypertension Qualified Code(s): I10 - Essential (primary) hypertension (3) Perforated peptic ulcer Current Visit: Yes Status: Acute
[2019-11-23] MEDS: LACTATED RINGERS 1,000 ML IV SCH (17:04)
[2019-11-23] MEDS: METOPROLOL TARTRATE 5 MG/5 ML INJ IV SCH (18:14)
[2019-11-24] MEDS: METOPROLOL TARTRATE 5 MG/5 ML INJ IV SCH ×4 (00:21→18:38)
[2019-11-24] MEDS: LACTATED RINGERS 1,000 ML IV SCH (04:00)
[2019-11-24 05:32] LABS: Hematocrit 37.2 % (30.3-42.9); Hemoglobin 12.2 gm/dl (10.1-14.3); Mean Corpuscular HGB Conc 33 % (30-34); Mean Corpuscular Volume 92 fl (79-97); Platelet Count 162 K/mm3 (140-440); Red Blood Count 4.07 M/mm3 (3.65-5.03); Red Cell Distribution Width 15.1 % (13.2-15.2)
[2019-11-24 05:42] LABS: BUN/Creatinine Ratio 38; Blood Urea Nitrogen 19 mg/dL (7-17); Calcium 8.4 mg/dL (8.4-10.2); Hemolysis Index 7
[2019-11-24] MEDS: HYDROmorphone 1 MG/1 ML INJ IV PRN ×3 (05:44→22:15)
[2019-11-24] MEDS: PIPERACILLIN/TAZOBACTAM 3.375 3.375 GM/50 ML BAG IV SCH ×3 (05:45→22:06)
--- NOTE | 2019-11-24 10:28 | Progress Note ---
Assessment and Plan Elevated troponin level in this pt appears nonspecific so far, and could be associated with acute stress and acute illness. tte reviewed with no significant abnormalities. Topical and parenteral antihypertensive medications for now while NPO. The patient has been seen in conjunction with Dr. Colón who agrees with the assessment and plan of care. - Patient Problems (1) Elevated troponin level Current Visit: Yes Status: Acute (2) Hypertension Current Visit: Yes Status: Chronic Qualifiers: Hypertension type: essential hypertension Qualified Code(s): I10 - Essential (primary) hypertension (3) Perforated peptic ulcer Current Visit: Yes Status: Acute Subjective Date of service: 11/24/19 Principal diagnosis: perf gastric ulcer; elevated trop Interval history: pt resting in bed, no current cardiac complaints. NGT in place, to suction. in SR on telemetry. Objective Last Vital Signs Temp 97.7 F 11/24/19 08:00 Pulse 74 11/24/19 08:00 Resp 18 11/24/19 08:00 BP 148/56 11/24/19 08:00 Pulse Ox 99 11/24/19 08:00 - Physical Examination General: No Apparent Distress HEENT: Positive: EOMI, Normocephaly, Mucus Membranes Moist Neck: Positive: neck supple, trachea midline Cardiac: Positive: Reg Rate and Rhythm, S1/S2 Lungs: Positive: Decreased Breath Sounds Neuro: Positive: Grossly Intact Abdomen: Positive: Soft, Tender Skin: Positive: Clear. Negative: Rash Musculoskeletal: Normal Range of Motion Extremities: Present: normal. Absent: edema - Labs and Meds CBC 11/24/19 Range/Units 04:46 WBC 8.3 (4.5-11.0) K/mm3 RBC 4.07 (3.65-5.03) M/mm3 Hgb 12.2 (10.1-14.3) gm/dl Hct 37.2 (30.3-42.9) % Plt Count 162 (140-440) K/mm3 Comprehensive Metabolic Panel 11/24/19 Range/Units 04:46 Sodium 138 (137-145) mmol/L Potassium 3.7 (3.6-5.0) mmol/L Chloride 107.6 H (98-107) mmol/L Carbon Dioxide 20 L (22-30) mmol/L BUN 19 H (7-17) mg/dL Creatinine 0.5 L (0.7-1.2) mg/dL Glucose 90 (65-100) mg/dL Calcium 8.4 (8.4-10.2) mg/dL - Imaging and Cardiology EKG: image reviewed - Telemetry EKG Rhythm: Sinus Rhythm - EKG Sinus rhythms and dysrhythmias: sinus rhythm Chamber hypertrophy or enlargement: left ventricular hypertro Repolarization changes or abnormalities: repolarization abn secondary to ventricular hypertrophy
--- NOTE | 2019-11-24 14:10 | Progress Note ---
Assessment and Plan Assessment and plan: Perforated gastric ulcer s/p repair 11/22/[address] Nieves, Surgeon continue Dilaudid for pain management Protonix surgeon following Hypertensive urgency patient states she does have elevated BP some times but denies hypertension BP elevated currently even when she is not in pain. Likely has undiagnosed h ypertension Start Clonidine patch since NPO. Add hydralazine iv prn Elevated Troponin cardiology consulted No chest pain ordered EKG, Echo 11/24/19 Patient with perforated gastric ulcer s/p repair. Less abd pain. Borderline elevated troponin nonspecific. History Interval history: Patient had perforated gastric ulcer s/p repair 11/22/19 Less abd pain No fever Hospitalist Physical - Physical exam Narrative exam: GEN: Not in acute distress, obese, lying in bed HEENT: Normocephalic, atraumatic, Neck: supple, No JVD Lungs: Clear to auscultation Heart;S1 and S2 reg, no murmurs, rubs or gallop Abd:soft, mild tender, dressing over abd, surgical drain, Ext: No edema, no clubbing, no cyanosis, Neuro: Awake,alert,oriented X3 , no focal signs, - Constitutional Vitals: Temp Pulse Resp BP Pulse Ox 97.7 F 78 18 158/60 99 11/24/19 08:00 11/24/19 11:47 11/24/19 08:00 11/24/19 11:47 11/24/19 08:00 General appearance: Present: no acute distress Results - Labs CBC & Chem 7: 11/24/19 04:46 11/24/19 04:46 Labs: Laboratory Last Values WBC 8.3 K/mm3 (4.5-11.0) 11/24/19 04:46 RBC 4.07 M/mm3 (3.65-5.03) 11/24/19 04:46 Hgb 12.2 gm/dl (10.1-14.3) 11/24/19 04:46 Hct 37.2 % (30.3-42.9) 11/24/19 04:46 MCV 92 fl (79-97) 11/24/19 04:46 MCH 30 pg (28-32) 11/24/19 04:46 MCHC 33 % (30-34) 11/24/19 04:46 RDW 15.1 % (13.2-15.2) 11/24/19 04:46 Plt Count 162 K/mm3 (140-440) 11/24/19 04:46 Lymph % (Auto) 13.0 % (13.4-35.0) L 11/23/19 05:59 [place] % (Auto) 3.9 % (0.0-7.3) 11/23/19 05:59 Eos % (Auto) 0.0 % (0.0-4.3) 11/23/19 05:59 Baso % (Auto) 0.2 % (0.0-1.8) 11/23/19 05:59 Lymph # 0.9 K/mm3 (1.2-5.4) L 11/23/19 05:59 [place] # 0.3 K/mm3 (0.0-0.8) 11/23/19 05:59 Eos # 0.0 K/mm3 (0.0-0.4) 11/23/19 05:59 Baso # 0.0 K/mm3 (0.0-0.1) 11/23/19 05:59 Seg Neutrophils % 82.9 % (40.0-70.0) H 11/23/19 05:59 Seg Neutrophils # 5.7 K/mm3 (1.8-7.7) 11/23/19 05:59 Sodium 138 mmol/L (137-145) 11/24/19 04:46 Potassium 3.7 mmol/L (3.6-5.0) 11/24/19 04:46 Chloride 107.6 mmol/L (98-107) H 11/24/19 04:46 Carbon Dioxide 20 mmol/L (22-30) L 11/24/19 04:46 Anion Gap 14 mmol/L 11/24/19 04:46 BUN 19 mg/dL (7-17) H 11/24/19 04:46 Creatinine 0.5 mg/dL (0.7-1.2) L 11/24/19 04:46 Estimated GFR > 60 ml/min 11/24/19 04:46 BUN/Creatinine Ratio 38 % 11/24/19 04:46 Glucose 90 mg/dL (65-100) 11/24/19 04:46 Calcium 8.4 mg/dL (8.4-10.2) 11/24/19 04:46 Total Bilirubin 0.80 mg/dL (0.1-1.2) 11/22/19 16:50 AST 20 units/L (5-40) 11/22/19 16:50 ALT 12 units/L (7-56) 11/22/19 16:50 Alkaline Phosphatase 68 units/L (35-129) 11/22/19 16:50 Troponin T 0.059 ng/mL (0.00-0.029) H D 11/22/19 22:57 Total Protein 7.0 g/dL (6.3-8.2) 11/22/19 16:50 Albumin 3.9 g/dL (3.9-5) 11/22/19 16:50 Albumin/Globulin Ratio 1.3 % 11/22/19 16:50 Triglycerides 91 mg/dL (2-149) 11/22/19 16:50 Cholesterol 229 mg/dL (50-199) H 11/22/19 16:50 LDL Cholesterol Direct 168 mg/dL (50-130) H 11/22/19 16:50 HDL Cholesterol 49 mg/dL (40-59) 11/22/19 16:50 Cholesterol/HDL Ratio 4.67 % 11/22/19 16:50 Lipase 52 units/L (13-60) 11/22/19 16:50 Urine Color Yellow (Yellow) 11/22/19 23:40 Urine Turbidity Clear (Clear) 11/22/19 23:40 Urine pH 5.0 (5.0-7.0) 11/22/19 23:40 Ur Specific [place] 1.060 (1.003-1.030) H 11/22/19 23:40 Urine Protein <15 mg/dl mg/dL (Negative) 11/22/19 23:40 Urine Glucose (UA) Neg mg/dL (Negative) 11/22/19 23:40 Urine Ketones 80 mg/dL (Negative) 11/22/19 23:40 Urine Blood Neg (Negative) 11/22/19 23:40 Urine Nitrite Neg (Negative) 11/22/19 23:40 Urine Bilirubin Neg (Negative) 11/22/19 23:40 Urine Urobilinogen < 2.0 mg/dL (<2.0) 11/22/19 23:40 Ur Leukocyte Esterase Neg (Negative) 11/22/19 23:40 Urine WBC (Auto) 2.0 /HPF (0.0-6.0) 11/22/19 23:40 Urine RBC (Auto) 2.0 /HPF (0.0-6.0) 11/22/19 23:40 U Epithel Cells (Auto) 9.0 /HPF (0-13.0) 11/22/19 23:40 Urine Mucus 1+ /HPF 11/22/19 23:40 - Diagnostic Impressions Diagnostic Impressions: Echocardiogram 11/23/19 09:08 Transthoracic Echocardiogram Indication: Elevated troponin BP: 160/69 HR: 80 Conclusions *There is trace mitral regurgitation. *There is mild tricuspid regurgitation. *There is mild aortic regurgitation. *The left ventricular chamber size is normal. *Global left ventricular systolic function is normal. *The estimated ejection fraction is 50-55%. *Abnormal left ventricular diastolic filling is observed, consistent with impaired relaxation. *Right ventricular chamber size and systolic function are within normal limits. Findings Left Ventricle: The left ventricular chamber size is normal. Global left ventricular wall motion and contractility are within normal limits. Global left ventricular systolic function is normal. The estimated ejection fraction is 50-55%. Abnormal left ventricular diastolic filling is observed, consistent with impaired relaxation. Left Atrium: The left atrium is normal in size with no visual thrombus identified. Right Ventricle: The right ventricular chamber size and systolic function are within normal limits. Right Atrium: The right atrium appears normal. The interatrial septum appears normal. No atrial septal defect is demonstrated by color Doppler. Aortic Valve: The aortic valve is not well visualized. The aortic valve is trileaflet. There is mild aortic regurgitation. There is no evidence of aortic stenosis. Mitral Valve: The mitral valve leaflets are mildly thickened. There is trace of mitral regurgitation. There is no evidence of mitral stenosis. Tricuspid Valve: The tricuspid valve is not well visualized. The tricuspid valve leaflets are normal. There is mild tricuspid regurgitation. The right ventricular systolic pressure is calculated at 23.3 mmHg. There is no tricuspid stenosis. Pulmonic Valve: The pulmonic valve is not well visualized. There is no evidence of pulmonic regurgitation. There is no pulmonic stenosis. Pericardium: There is no pericardial effusion. Aorta: There is no dilatation of the ascending aorta. There is no dilatation of the aortic root. Venous: The inferior vena cava appears normal in size. There is a greater than 50% respiratory change in the inferior vena cava dimension. Measurements Chambers 2D Name Value Normal Range IVSd (2D) 0.99 cm (0.6 - 1.1) LVPWd (2D) 0.98 cm (0.6 - 1.1) LVIDd (2D) 4.17 cm (3.7 - 5.6) LVIDs (2D) 3.04 cm (2 - 3.8) LV FS (2D) 27.05 % - EF Teichholz (2D) 53.13 % - Ao root diameter (2D) 2.28 cm (2 - 3.7) Volumes/Mass Name Value Normal Range LA ESV SP 4CH (A/L) 31.07 ml - LA ESV SP 2CH (A/L) 30.65 ml - LA ESV BP (A/L) 34.05 ml - LA ESV SP 4CH (MOD) 26.35 ml - LA ESV SP 2CH (MOD) 29.89 ml - LA ESV BP (MOD) 30.55 ml - LA ESV BP (MOD) index 21.98 ml/m2 - LV EDV SP 4CH (MOD) 54.57 ml - LV ESV SP 4CH (MOD) 25.71 ml - EF SP 4CH (MOD) 52.88 % - LV EDV SP 2CH (MOD) 58.03 ml - LV ESV SP 2CH (MOD) 21.91 ml - EF SP 2CH (MOD) 62.24 % - LV EDV BP 56.81 ml - LV ESV BP 23.05 ml - BP EF (MOD) 59.42 % - Diastolic/Systolic Function Name Value Normal Range MV E-wave Vmax 0.6 m/sec - MV deceleration time 179.17 msec - MV A-wave Vmax 1.01 m/sec - MV E:A ratio 0.6 ratio - Aortic Valve Name Value Normal Range AV Vmax 1.31 m/sec - AV VTI 27.28 cm - AV peak gradient 6.9 mmHg - AV mean gradient 4.53 mmHg - LVOT diameter 2.08 cm - LVOT Vmax 0.82 m/sec - LVOT VTI 15.54 cm - LVOT peak gradient 2.7 mmHg - LVOT mean gradient 1.98 mmHg - SV LVOT 52.59 ml - VANI (continuity Vmax) 2.12 cm2 - VANI (continuity VTI) 1.93 cm2 - AR PHT 449.26 msec - AR peak gradient 70.87 mmHg - Tricuspid Valve Name Value Normal Range TR Vmax 2.25 m/sec - TR peak gradient 20.3 mmHg - RAP 3 mmHg - RVSP 23.3 mmHg - Pulmonic Valve/Qp:Qs Name Value Normal Range PV Vmax 0.98 m/sec - PV peak gradient 3.82 mmHg - DC end-diastolic Vmax 1.19 m/sec - RVOT Vmax 0.69 m/sec - RVOT peak gradient 1.94 mmHg - PV acceleration time 97.05 msec - Barcenas/IV: Voiding Method Indwelling Catheter IV Catheter Type [Left Forearm INT / Saline Lock ] IV Catheter Type [Right INT / Saline Lock Antecubital] IV Catheter Type [Left Wrist] INT / Saline Lock Active Medications - Current Medications Current Medications: Generic Name Dose Route Start Last Admin Trade Name Freq PRN Reason Stop Dose Admin Clonidine HCl 0.2 mg 11/23/19 09:00 11/23/19 11:16 Catapres-Tts Patch TD 0.2 mg Pedroza CANDIDA Administration Hydralazine HCl 10 mg 11/23/19 10:00 Apresoline IV Q4HR PRN SBP>160 or DBP>110 Hydromorphone HCl 0.5 mg 11/23/19 04:24 11/24/19 05:44 Dilaudid IV 0.5 mg Q3H PRN Administration Pain , Severe (7-10) Pantoprazole Sodium 80 mg/ 100 mls @ 10 mls/hr 11/23/19 04:24 11/23/19 05:30 Sodium Chloride IV 8 mg/hr DIRECT CANDIDA 10 mls/hr Administration 8 MG/HR Piperacillin Sod/Tazobactam Sod 3.375 gm in 50 mls @ 100 mls/hr 11/23/19 06:00 11/24/19 05:45 Zosyn/Ns 3.375gm/50ml IV 100 mls/hr Q8HR CANDIDA Administration Protocol Lactated Ringer's 1,000 mls @ 125 mls/hr 11/23/19 04:24 11/24/19 04:00 Lactated Ringers IV 125 mls/hr DIRECT CANDIDA Administration Metoprolol Tartrate 2.5 mg 11/23/19 18:00 11/24/19 11:47 Metoprolol IV 2.5 mg Q6HR CANDIDA Administration Ondansetron HCl 4 mg 11/23/19 04:24 Zofran IV Q4H PRN Nausea And Vomiting
--- NOTE | 2019-11-24 14:54 | Progress Note ---
Assessment and Plan POD#2 s/p dx lap with omar patch repair of perforated gastric ulcer. stable and afebrile. will get UGI tomorrow to check status of repair. continue abx and npo. Subjective Date of service: 11/24/19 Patient Reports: Positive: feels better (no acute events. Pt says she is feeling a bit better than yesterday. ) Objective Vital Signs - 12hr 11/24/19 11/24/19 11/24/19 04:29 05:00 05:10 Temperature 98.1 F Pulse Rate 73 82 Respiratory 18 18 Rate Blood Pressure 126/66 O2 Sat by Pulse 98 Oximetry 11/24/19 11/24/19 11/24/19 08:00 11:42 11:47 Temperature 97.7 F 98.6 F Pulse Rate 74 78 78 Respiratory 18 18 Rate Blood Pressure 148/56 158/60 158/60 O2 Sat by Pulse 99 94 Oximetry - General physical appearance well developed, no distress, no pain - Respiratory normal expansion, normal respiratory effort - Abdomen soft, other (incisions c/d/i, SERGE drain with serous fluid, appropriatley tender to palpation) - Labs 11/24/19 04:46 11/24/19 04:46 Diabetes panel 11/24/19 Range/Units 04:46 Sodium 138 (137-145) mmol/L Potassium 3.7 (3.6-5.0) mmol/L Chloride 107.6 H (98-107) mmol/L Carbon Dioxide 20 L (22-30) mmol/L BUN 19 H (7-17) mg/dL Creatinine 0.5 L (0.7-1.2) mg/dL Glucose 90 (65-100) mg/dL Calcium 8.4 (8.4-10.2) mg/dL Calcium panel 11/24/19 Range/Units 04:46 Calcium 8.4 (8.4-10.2) mg/dL Pituitary panel 11/24/19 Range/Units 04:46 Sodium 138 (137-145) mmol/L Potassium 3.7 (3.6-5.0) mmol/L Chloride 107.6 H (98-107) mmol/L Carbon Dioxide 20 L (22-30) mmol/L BUN 19 H (7-17) mg/dL Creatinine 0.5 L (0.7-1.2) mg/dL Glucose 90 (65-100) mg/dL Calcium 8.4 (8.4-10.2) mg/dL Adrenal panel 11/24/19 Range/Units 04:46 Sodium 138 (137-145) mmol/L Potassium 3.7 (3.6-5.0) mmol/L Chloride 107.6 H (98-107) mmol/L Carbon Dioxide 20 L (22-30) mmol/L BUN 19 H (7-17) mg/dL Creatinine 0.5 L (0.7-1.2) mg/dL Glucose 90 (65-100) mg/dL Calcium 8.4 (8.4-10.2) mg/dL
--- NOTE | 2019-11-24 16:18 | Consultation ---
History of Present Illness - Reason for Consult Consult date: 11/24/19 bowel perg Requesting physician: NAHUM SIMS - History of Present Illness 79 y/o female with no medical history admitted on 11/22/2019 due to 7-day history of epigastric abdominal pain, of . Initially seen in an urgent care facility received omeprazole and bentyl. Denies N/V/D, fever, cough, SOB. On arrival, temp 97.7, rest of vitals normal. WBC 7..2. CT abd shows perforated peptic ulcer of the distal stomach with moderate pneumoperitoneum. Patient was taken to the OR and underwent laparascopic Rex patch repair, abdominal lavage on 11/23/2019, findings <1cm punctate perf on the anterior side of pylorus with free fluid. Review of Systems: positive in bold print General: fever, chills, malaise Cutaneous: rash, pruritus Head: headaches or injury Eyes: changes in vision, eye pain, double vision Ears: ear pain, ear discharge, ringing or hearing loss Nose: nose bleeding, stuffiness Mouth & throat: bleeding gums, horseness, no dental problems, or swollen glands Neck: no pain, node enlargement/lumps, tyroid enlargement or tenderness Respiratory: SOB, cough,VALENZUELA, wheezing, sputum, hemoptysis, pleuritic chest pain Cardiovascular: chest pain, leg edema, cyanosis, VALENZUELA, orthopnea Musculoskeletal: edema Gastrointestinal: +abdominal pain, nausea, vomiting, hematemesis, diarrhea, constipation, melena, bright red blood in stools, fecal incontinence, jaundice Genitourinary/Reproductive: frequent urination, dysuria, hematuria, incontinence Neurogical: seizures, headaches, weakness, paresthesias, loss of speech or vision; memory loss, vertigo, tremors, numbness Psychiatric: stable mood; excessive anxiety, sadness or moodiness Past History Past Medical History: hypertension (She stopped taking meds a long tme ago when she felt that her BP was good.) Past Surgical History: appendectomy Social history: denies: smoking, alcohol abuse Family history: CAD Medications and Allergies Allergies Allergy/AdvReac Type Severity Reaction Status Date / Time No Known Allergies Allergy Verified 11/22/19 22:53 Active Meds: Active Medications Clonidine HCl (Catapres-Tts Patch) 0.2 mg TD Pedroza CANDIDA Last Admin: 11/23/19 11:16 Dose: 0.2 mg Documented by: Hydralazine HCl (Apresoline) 10 mg IV Q4HR PRN PRN Reason: SBP>160 or DBP>110 Hydromorphone HCl (Dilaudid) 0.5 mg IV Q3H PRN PRN Reason: Pain , Severe (7-10) Last Admin: 11/24/19 05:44 Dose: 0.5 mg Documented by: Pantoprazole Sodium 80 mg/ (Sodium Chloride) 100 mls @ 10 mls/hr IV DIRECT CANDIDA Last Admin: 11/23/19 05:30 Dose: 8 mg/hr, 10 mls/hr Documented by: Piperacillin Sod/Tazobactam Sod (Zosyn/Ns 3.375gm/50ml) 3.375 gm in 50 mls @ 100 mls/hr IV Q8HR CANDIDA; Protocol Last Admin: 11/24/19 05:45 Dose: 100 mls/hr Documented by: Lactated Ringer's (Lactated Ringers) 1,000 mls @ 125 mls/hr IV DIRECT CANDIDA Last Admin: 11/24/19 04:00 Dose: 125 mls/hr Documented by: Metoprolol Tartrate (Metoprolol) 2.5 mg IV Q6HR CANDIDA Last Admin: 11/24/19 11:47 Dose: 2.5 mg Documented by: Ondansetron HCl (Zofran) 4 mg IV Q4H PRN PRN Reason: Nausea And Vomiting Physical Examination - Physical Exam Narrative exam: General appearance: Alert in NAD Eyes: anicteric sclerae, moist conjunctivae; no lid-lag; PERRLA HENT: Atraumatic; oropharynx clear +NGT Lungs: CTA, with normal respiratory effort and no intercostal retractions CV: RRR no murmur Abdomen: Soft, diffuse tenderness, lap surgical wounds with drain Extremities: no edema, no cyanosis Skin: No rash. Psych: no agitated Neuro: alert and oriented x 3. Moving all extermities - Constitutional Vitals: Vital Signs Temp Pulse Resp BP Pulse Ox 98.6 F 78 18 158/60 94 11/24/19 11:42 11/24/19 11:47 11/24/19 11:42 11/24/19 11:47 11/24/19 11:42 Temperature -Last 24 Hours Temperature 98.6 F Temperature 97.7 F Temperature 98.1 F Temperature 99.2 F Temperature 98.7 F Results - Labs CBC & Chem 7: 11/24/19 04:46 11/24/19 04:46 Labs: Abnormal lab results 11/24/19 Range/Units 04:46 Chloride 107.6 H (98-107) mmol/L Carbon Dioxide 20 L (22-30) mmol/L BUN 19 H (7-17) mg/dL Creatinine 0.5 L (0.7-1.2) mg/dL Assessment and Plan Cultures: none Assessment: 79 y/o female with no medical history admitted on 11/22/2019 due to 7- day history of epigastric abdominal pain, , now with: #Acute gastric perforation with subsequent peritonitis: CT abd shows perforated peptic ulcer of the distal stomach with moderate pneumoperitoneum. Patient was taken to the OR and underwent laparascopic Rex patch repair, abdominal lavage on 11/23/2019, findings <1cm punctate perf on the anterior side of pylorus with free fluid. No evidence of sepsis. Recommendations: Continue zosyn IV 3,375 gm q 8 hour for now Add fluconazole 400 mg IV q day Will follow. Federica Peres MD Infectious Diseases [place] [employer] [facility] M [phone] O [phone]
[2019-11-24] MEDS: FLUCONAZOLE 400 MG 200 ML IV SCH (22:07)
[2019-11-25] MEDS: METOPROLOL TARTRATE 5 MG/5 ML INJ IV SCH ×4 (00:31→17:41)
[2019-11-25 04:34] LABS: Hematocrit 34.6 % (30.3-42.9); Hemoglobin 11.6 gm/dl (10.1-14.3); Mean Corpuscular HGB Conc 34 % (30-34); Mean Corpuscular Volume 92 fl (79-97); Platelet Count 170 K/mm3 (140-440); Red Blood Count 3.78 M/mm3 (3.65-5.03); Red Cell Distribution Width 15.3 % (13.2-15.2)
[2019-11-25 04:37] LABS: BUN/Creatinine Ratio 32; Blood Urea Nitrogen 16 mg/dL (7-17); Calcium 8.5 mg/dL (8.4-10.2); Hemolysis Index 34
[2019-11-25] MEDS: PIPERACILLIN/TAZOBACTAM 3.375 3.375 GM/50 ML BAG IV SCH ×3 (06:02→22:56)
[2019-11-25] MEDS: PANTOPRAZOLE 80 MG in SODIUM CHLORIDE 0.9% 100 ML IV SCH ×3 (06:45→23:13)
--- NOTE | 2019-11-25 09:34 | Fluoroscopy Report ---
UPPER GI HISTORY: eval s/p repair of perf gastric ulcer. TECHNIQUE: Single contrast Gastrografin technique utilized to evaluate the esophagus, stomach, and d uodenal C-loop. FINDINGS: A modified examination was performed to evaluate recent repair of the distal gastric or duo denal ulcer. CT abdomen pelvis dated 11/22/2019 was reviewed. Approximately 100 cc of Gastrografin contrast agent was administered views of the nasogastric tube. T here is normal filling of the stomach, duodenal bulb and duodenal sweep. No evidence for obstruction or extravasation. IMPRESSION: No evidence for obstruction or extravasation. Fluoroscopic time: 1.4 minutes Number of fluoroscopic images: 10 Signer Name: Norm Alfonso Jr, MD Signed: 11/25/2019 9:30 AM Workstation Name: [id number]
[2019-11-25] MEDS: FLUCONAZOLE 400 MG 200 ML IV SCH (09:45)
[2019-11-25] MEDS: LACTATED RINGERS 1,000 ML IV SCH (09:46)
--- NOTE | 2019-11-25 09:57 | Progress Note ---
Assessment and Plan Elevated troponin level in this pt appears nonspecific so far, and could be associated with acute stress and acute illness. tte reviewed with no significant abnormalities. Topical and parenteral antihypertensive medications for now while NPO and recommend conversion to PO once enteral intake is resumed. Currently stable cardiac status. Nothing further to add from cardiac perspective at this time. Can consider stress test as OP. Will follow on as needed basis. Recommend pt follow up in our office with Dr. Newsome within 2 weeks of d ischarge ([phone]). The patient has been seen in conjunction with Dr. Colón who agrees with the assessment and plan of care. - Patient Problems (1) Elevated troponin level Current Visit: Yes Status: Acute (2) Hypertension Current Visit: Yes Status: Chronic Qualifiers: Hypertension type: essential hypertension Qualified Code(s): I10 - Essential (primary) hypertension (3) Perforated peptic ulcer Current Visit: Yes Status: Acute Subjective Date of service: 11/25/19 Principal diagnosis: perf gastric ulcer; elevated trop Interval history: pt resting in bed, no current cardiac complaints. NGT in place, to suction. in S R on telemetry with 2 brief runs of atrial tachycardia noted overnight. Objective Last Vital Signs Temp 98.4 F 11/25/19 03:38 Pulse 101 H 11/25/19 06:40 Resp 18 11/25/19 04:00 BP 147/64 11/25/19 06:01 Pulse Ox 86 11/25/19 03:38 - Physical Examination General: No Apparent Distress HEENT: Positive: EOMI, Normocephaly, Mucus Membranes Moist Neck: Positive: neck supple, trachea midline Cardiac: Positive: Reg Rate and Rhythm, S1/S2 Lungs: Positive: Decreased Breath Sounds Neuro: Positive: Grossly Intact Abdomen: Positive: Soft, Tender Skin: Positive: Clear. Negative: Rash Musculoskeletal: Normal Range of Motion Extremities: Present: normal. Absent: edema - Labs and Meds CBC 11/25/19 Range/Units 03:41 WBC 8.8 (4.5-11.0) K/mm3 RBC 3.78 (3.65-5.03) M/mm3 Hgb 11.6 (10.1-14.3) gm/dl Hct 34.6 (30.3-42.9) % Plt Count 170 (140-440) K/mm3 Comprehensive Metabolic Panel 11/25/19 Range/Units 03:41 Sodium 138 (137-145) mmol/L Potassium 3.8 (3.6-5.0) mmol/L Chloride 103.7 (98-107) mmol/L Carbon Dioxide 20 L (22-30) mmol/L BUN 16 (7-17) mg/dL Creatinine 0.5 L (0.7-1.2) mg/dL Glucose 63 L (65-100) mg/dL Calcium 8.5 (8.4-10.2) mg/dL - Imaging and Cardiology EKG: image reviewed - EKG Sinus rhythms and dysrhythmias: sinus rhythm Chamber hypertrophy or enlargement: left ventricular hypertro Repolarization changes or abnormalities: repolarization abn secondary to ventri cular hypertrophy
--- NOTE | 2019-11-25 13:06 | Progress Note ---
Assessment and Plan Assessment and plan: Perforated gastric ulcer s/p repair 11/22/[address] Nieves, Surgeon continue Dilaudid for pain management Protonix surgeon following Hypertensive urgency Etiology may be related to pain, patient with no history of hypertension. Elevated Troponin cardiology consulted No chest pain 11/24/19 Patient with perforated gastric ulcer s/p repair. Less abd pain. Borderline elevated troponin nonspecific. 11/25/2019. Cardiology feels the elevated troponin is nonspecific. Echocardiogram revealed no significant abnormalities. Continue topical and IV antihypertensive medications until patient able to take p.o. Consider stress test as an outpatient. The patient is POD#2 s/p dx lap with omar patch repair of perforated gastric ulcer. Surgery to check status of repair with UGI tomorrow. Continue antibiotics(Zosyn) and n.p.o. status. ID following History Interval history: No new issues overnight. Hospitalist Physical - Constitutional Vitals: Temp Pulse Resp BP Pulse Ox 98.5 F 86 18 161/61 95 11/25/19 11:54 11/25/19 12:20 11/25/19 11:54 11/25/19 12:20 11/25/19 11:54 General appearance: Present: no acute distress - EENT Eyes: Present: PERRL, EOM intact ENT: hearing intact, clear oral mucosa, dentition normal - Neck Neck: Present: supple, normal ROM - Respiratory Respiratory effort: normal Respiratory: bilateral: CTA - Cardiovascular Rhythm: regular Heart Sounds: Present: S1 & S2. Absent: gallop, rub - Extremities Extremities: no ischemia, No edema, Full ROM - Abdominal General gastrointestinal: soft, non-tender, non-distended, normal bowel sounds - Integumentary Integumentary: Present: clear, warm, dry - Neurologic Neurologic: CNII-XII intact, moves all extremities Results - Labs CBC & Chem 7: 11/25/19 03:41 11/25/19 03:41 Labs: Laboratory Last Values WBC 8.8 K/mm3 (4.5-11.0) 11/25/19 03:41 RBC 3.78 M/mm3 (3.65-5.03) 11/25/19 03:41 Hgb 11.6 gm/dl (10.1-14.3) 11/25/19 03:41 Hct 34.6 % (30.3-42.9) 11/25/19 03:41 MCV 92 fl (79-97) 11/25/19 03:41 MCH 31 pg (28-32) 11/25/19 03:41 MCHC 34 % (30-34) 11/25/19 03:41 RDW 15.3 % (13.2-15.2) H 11/25/19 03:41 Plt Count 170 K/mm3 (140-440) 11/25/19 03:41 Lymph % (Auto) 13.0 % (13.4-35.0) L 11/23/19 05:59 [place] % (Auto) 3.9 % (0.0-7.3) 11/23/19 05:59 Eos % (Auto) 0.0 % (0.0-4.3) 11/23/19 05:59 Baso % (Auto) 0.2 % (0.0-1.8) 11/23/19 05:59 Lymph # 0.9 K/mm3 (1.2-5.4) L 11/23/19 05:59 [place] # 0.3 K/mm3 (0.0-0.8) 11/23/19 05:59 Eos # 0.0 K/mm3 (0.0-0.4) 11/23/19 05:59 Baso # 0.0 K/mm3 (0.0-0.1) 11/23/19 05:59 Seg Neutrophils % 82.9 % (40.0-70.0) H 11/23/19 05:59 Seg Neutrophils # 5.7 K/mm3 (1.8-7.7) 11/23/19 05:59 Sodium 138 mmol/L (137-145) 11/25/19 03:41 Potassium 3.8 mmol/L (3.6-5.0) 11/25/19 03:41 Chloride 103.7 mmol/L (98-107) 11/25/19 03:41 Carbon Dioxide 20 mmol/L (22-30) L 11/25/19 03:41 Anion Gap 18 mmol/L 11/25/19 03:41 BUN 16 mg/dL (7-17) 11/25/19 03:41 Creatinine 0.5 mg/dL (0.7-1.2) L 11/25/19 03:41 Estimated GFR > 60 ml/min 11/25/19 03:41 BUN/Creatinine Ratio 32 % 11/25/19 03:41 Glucose 63 mg/dL (65-100) L 11/25/19 03:41 Calcium 8.5 mg/dL (8.4-10.2) 11/25/19 03:41 Total Bilirubin 0.80 mg/dL (0.1-1.2) 11/22/19 16:50 AST 20 units/L (5-40) 11/22/19 16:50 ALT 12 units/L (7-56) 11/22/19 16:50 Alkaline Phosphatase 68 units/L (35-129) 11/22/19 16:50 Troponin T 0.059 ng/mL (0.00-0.029) H D 11/22/19 22:57 Total Protein 7.0 g/dL (6.3-8.2) 11/22/19 16:50 Albumin 3.9 g/dL (3.9-5) 11/22/19 16:50 Albumin/Globulin Ratio 1.3 % 11/22/19 16:50 Triglycerides 91 mg/dL (2-149) 11/22/19 16:50 Cholesterol 229 mg/dL (50-199) H 11/22/19 16:50 LDL Cholesterol Direct 168 mg/dL (50-130) H 11/22/19 16:50 HDL Cholesterol 49 mg/dL (40-59) 11/22/19 16:50 Cholesterol/HDL Ratio 4.67 % 11/22/19 16:50 Lipase 52 units/L (13-60) 11/22/19 16:50 Urine Color Yellow (Yellow) 11/22/19 23:40 Urine Turbidity Clear (Clear) 11/22/19 23:40 Urine pH 5.0 (5.0-7.0) 11/22/19 23:40 Ur Specific [place] 1.060 (1.003-1.030) H 11/22/19 23:40 Urine Protein <15 mg/dl mg/dL (Negative) 11/22/19 23:40 Urine Glucose (UA) Neg mg/dL (Negative) 11/22/19 23:40 Urine Ketones 80 mg/dL (Negative) 11/22/19 23:40 Urine Blood Neg (Negative) 11/22/19 23:40 Urine Nitrite Neg (Negative) 11/22/19 23:40 Urine Bilirubin Neg (Negative) 11/22/19 23:40 Urine Urobilinogen < 2.0 mg/dL (<2.0) 11/22/19 23:40 Ur Leukocyte Esterase Neg (Negative) 11/22/19 23:40 Urine WBC (Auto) 2.0 /HPF (0.0-6.0) 11/22/19 23:40 Urine RBC (Auto) 2.0 /HPF (0.0-6.0) 11/22/19 23:40 U Epithel Cells (Auto) 9.0 /HPF (0-13.0) 11/22/19 23:40 Urine Mucus 1+ /HPF 11/22/19 23:40 - Diagnostic Impressions Diagnostic Impressions: Echocardiogram 11/23/19 09:08 Transthoracic Echocardiogram Indication: Elevated troponin BP: 160/69 HR: 80 Conclusions *There is trace mitral regurgitation. *There is mild tricuspid regurgitation. *There is mild aortic regurgitation. *The left ventricular chamber size is normal. *Global left ventricular systolic function is normal. *The estimated ejection fraction is 50-55%. *Abnormal left ventricular diastolic filling is observed, consistent with impaired relaxation. *Right ventricular chamber size and systolic function are within normal limits. Findings Left Ventricle: The left ventricular chamber size is normal. Global left ventricular wall motion and contractility are within normal limits. Global left ventricular systolic function is normal. The estimated ejection fraction is 50-55%. Abnormal left ventricular diastolic filling is observed, consistent with impaired relaxation. Left Atrium: The left atrium is normal in size with no visual thrombus identified. Right Ventricle: The right ventricular chamber size and systolic function are within normal limits. Right Atrium: The right atrium appears normal. The interatrial septum appears normal. No atrial septal defect is demonstrated by color Doppler. Aortic Valve: The aortic valve is not well visualized. The aortic valve is trileaflet. There is mild aortic regurgitation. There is no evidence of aortic stenosis. Mitral Valve: The mitral valve leaflets are mildly thickened. There is trace of mitral regurgitation. There is no evidence of mitral stenosis. Tricuspid Valve: The tricuspid valve is not well visualized. The tricuspid valve leaflets are normal. There is mild tricuspid regurgitation. The right ventricular systolic pressure is calculated at 23.3 mmHg. There is no tricuspid stenosis. Pulmonic Valve: The pulmonic valve is not well visualized. There is no evidence of pulmonic regurgitation. There is no pulmonic stenosis. Pericardium: There is no pericardial effusion. Aorta: There is no dilatation of the ascending aorta. There is no dilatation of the aortic root. Venous: The inferior vena cava appears normal in size. There is a greater than 50% respiratory change in the inferior vena cava dimension. Measurements Chambers 2D Name Value Normal Range IVSd (2D) 0.99 cm (0.6 - 1.1) LVPWd (2D) 0.98 cm (0.6 - 1.1) LVIDd (2D) 4.17 cm (3.7 - 5.6) LVIDs (2D) 3.04 cm (2 - 3.8) LV FS (2D) 27.05 % - EF Teichholz (2D) 53.13 % - Ao root diameter (2D) 2.28 cm (2 - 3.7) Volumes/Mass Name Value Normal Range LA ESV SP 4CH (A/L) 31.07 ml - LA ESV SP 2CH (A/L) 30.65 ml - LA ESV BP (A/L) 34.05 ml - LA ESV SP 4CH (MOD) 26.35 ml - LA ESV SP 2CH (MOD) 29.89 ml - LA ESV BP (MOD) 30.55 ml - LA ESV BP (MOD) index 21.98 ml/m2 - LV EDV SP 4CH (MOD) 54.57 ml - LV ESV SP 4CH (MOD) 25.71 ml - EF SP 4CH (MOD) 52.88 % - LV EDV SP 2CH (MOD) 58.03 ml - LV ESV SP 2CH (MOD) 21.91 ml - EF SP 2CH (MOD) 62.24 % - LV EDV BP 56.81 ml - LV ESV BP 23.05 ml - BP EF (MOD) 59.42 % - Diastolic/Systolic Function Name Value Normal Range MV E-wave Vmax 0.6 m/sec - MV deceleration time 179.17 msec - MV A-wave Vmax 1.01 m/sec - MV E:A ratio 0.6 ratio - Aortic Valve Name Value Normal Range AV Vmax 1.31 m/sec - AV VTI 27.28 cm - AV peak gradient 6.9 mmHg - AV mean gradient 4.53 mmHg - LVOT diameter 2.08 cm - LVOT Vmax 0.82 m/sec - LVOT VTI 15.54 cm - LVOT peak gradient 2.7 mmHg - LVOT mean gradient 1.98 mmHg - SV LVOT 52.59 ml - VANI (continuity Vmax) 2.12 cm2 - VANI (continuity VTI) 1.93 cm2 - AR PHT 449.26 msec - AR peak gradient 70.87 mmHg - Tricuspid Valve Name Value Normal Range TR Vmax 2.25 m/sec - TR peak gradient 20.3 mmHg - RAP 3 mmHg - RVSP 23.3 mmHg - Pulmonic Valve/Qp:Qs Name Value Normal Range PV Vmax 0.98 m/sec - PV peak gradient 3.82 mmHg - PA end-diastolic Vmax 1.19 m/sec - RVOT Vmax 0.69 m/sec - RVOT peak gradient 1.94 mmHg - PV acceleration time 97.05 msec - Barcenas/IV: Voiding Method Bedpan IV Catheter Type [Left Forearm INT / Saline Lock ] IV Catheter Type [Right INT / Saline Lock Antecubital] IV Catheter Type [Left Wrist] INT / Saline Lock Active Medications - Current Medications Current Medications: Generic Name Dose Route Start Last Admin Trade Name Freq PRN Reason Stop Dose Admin Clonidine HCl 0.2 mg 11/23/19 09:00 11/23/19 11:16 Catapres-Tts Patch TD 0.2 mg Pedroza CANDIDA Administration Hydralazine HCl 10 mg 11/23/19 10:00 Apresoline IV Q4HR PRN SBP>160 or DBP>110 Hydromorphone HCl 0.5 mg 11/23/19 04:24 11/24/19 22:15 Dilaudid IV 0.5 mg Q3H PRN Administration Pain , Severe (7-10) Pantoprazole Sodium 80 mg/ 100 mls @ 10 mls/hr 11/23/19 04:24 11/25/19 06:45 Sodium Chloride IV 11/26/19 04:23 8 mg/hr DIRECT CANDIDA 10 mls/hr Administration 8 MG/HR Piperacillin Sod/Tazobactam Sod 3.375 gm in 50 mls @ 100 mls/hr 11/23/19 06:00 11/25/19 06:02 Zosyn/Ns 3.375gm/50ml IV 100 mls/hr Q8HR CANDIDA Administration Protocol Lactated Ringer's 1,000 mls @ 125 mls/hr 11/23/19 04:24 11/25/19 09:46 Lactated Ringers IV 125 mls/hr DIRECT CANDIDA Administration Fluconazole 200 mls @ 100 mls/hr 11/24/19 21:00 11/25/19 09:45 Diflucan IV 100 mls/hr Q24HR CANDIDA Administration Protocol Metoprolol Tartrate 2.5 mg 11/23/19 18:00 11/25/19 12:20 Metoprolol IV 2.5 mg Q6HR CANDIDA Administration Ondansetron HCl 4 mg 11/23/19 04:24 Zofran IV Q4H PRN Nausea And Vomiting Pantoprazole Sodium 40 mg 11/26/19 10:00 Protonix IV BID CANDIDA
--- NOTE | 2019-11-25 13:14 | Progress Note ---
Assessment and Plan POD#3 s/p laparoscopic omar patch repair of perforated gastric ulcer. no clinical or radiological signs of active leak. Afebrile and stable. Will start trial of clear liquids. If she does well sill dc NGT. May advance to full liquids tomorrow if no issues overnight. Subjective Date of service: 11/25/19 Patient Reports: Positive: feels better (Pt had an UGI this morning that was negative for active leak or obstruction. She says she has had two episodes of diarhea since last night. ), other Objective Vital Signs - 12hr 11/25/19 11/25/19 11/25/19 03:38 04:00 06:01 Temperature 98.4 F Pulse Rate 82 82 Respiratory 18 18 Rate Blood Pressure 147/64 147/64 O2 Sat by Pulse 86 Oximetry 11/25/19 11/25/19 11/25/19 06:40 07:56 09:00 Temperature 98.8 F Pulse Rate 101 H 77 71 Respiratory 18 Rate Blood Pressure 148/69 O2 Sat by Pulse 92 Oximetry 11/25/19 11/25/19 11:54 12:20 Temperature 98.5 F Pulse Rate 86 86 Respiratory 18 Rate Blood Pressure 161/61 161/61 O2 Sat by Pulse 95 Oximetry - General physical appearance no distress, no pain - Respiratory normal expansion, normal respiratory effort - Abdomen soft, not tender, other (SERGE drain with serous fluid. ) - Labs 11/25/19 03:41 11/25/19 03:41 Diabetes panel 11/25/19 Range/Units 03:41 Sodium 138 (137-145) mmol/L Potassium 3.8 (3.6-5.0) mmol/L Chloride 103.7 (98-107) mmol/L Carbon Dioxide 20 L (22-30) mmol/L BUN 16 (7-17) mg/dL Creatinine 0.5 L (0.7-1.2) mg/dL Glucose 63 L (65-100) mg/dL Calcium 8.5 (8.4-10.2) mg/dL Calcium panel 11/25/19 Range/Units 03:41 Calcium 8.5 (8.4-10.2) mg/dL Pituitary panel 11/25/19 Range/Units 03:41 Sodium 138 (137-145) mmol/L Potassium 3.8 (3.6-5.0) mmol/L Chloride 103.7 (98-107) mmol/L Carbon Dioxide 20 L (22-30) mmol/L BUN 16 (7-17) mg/dL Creatinine 0.5 L (0.7-1.2) mg/dL Glucose 63 L (65-100) mg/dL Calcium 8.5 (8.4-10.2) mg/dL Adrenal panel 11/25/19 Range/Units 03:41 Sodium 138 (137-145) mmol/L Potassium 3.8 (3.6-5.0) mmol/L Chloride 103.7 (98-107) mmol/L Carbon Dioxide 20 L (22-30) mmol/L BUN 16 (7-17) mg/dL Creatinine 0.5 L (0.7-1.2) mg/dL Glucose 63 L (65-100) mg/dL Calcium 8.5 (8.4-10.2) mg/dL
--- NOTE | 2019-11-25 16:34 | Progress Note ---
Assessment and Plan Cultures: none Assessment: 79 y/o female with no medical history admitted on 11/22/2019 due to 7-day history of epigastric abdominal pain, 10 of 10, now with: #Acute gastric perforation with subsequent peritonitis: CT abd shows perforated peptic ulcer of the distal stomach with moderate pneumoperitoneum. Patient was taken to the OR and underwent laparascopic Rex patch repair, abdominal lavage on 11/23/2019, findings <1cm punctate perf on the anterior side of pylorus with free fluid. No evidence of sepsis. Recommendations: Continue zosyn IV 3,375 gm q 8 hour for now Continue fluconazole 400 mg IV q day patient to advance oral intake, once advanced will change to po augmentin 875 mg bid and fluconazole 200 mg po qday till 11/28 Will follow. Federica Peres MD Infectious Diseases Housekeeping/Laundry [facility] ([facility]) M [phone] O [phone] Subjective Date of service: 11/25/19 Principal diagnosis: perf gastric ulcer; elevated trop Interval history: Feels better, no N/V/D, wants ice ships. No fever. Objective - Exam Narrative Exam: General appearance: Alert in NAD Eyes: anicteric sclerae, moist conjunctivae; no lid-lag; PERRLA HENT: Atraumatic; oropharynx clear +NGT Lungs: CTA, with normal respiratory effort and no intercostal retractions CV: RRR no murmur Abdomen: Soft, diffuse tenderness, lap surgical wounds with drain Extremities: no edema, no cyanosis Skin: No rash. Psych: no agitated Neuro: alert and oriented x 3. Moving all extermities - Constitutional Vitals: Vital Signs Temp Pulse Resp BP Pulse Ox 98.5 F 86 18 161/61 95 11/25/19 11:54 11/25/19 12:20 11/25/19 11:54 11/25/19 12:20 11/25/19 11:54 Temperature -Last 24 Hours Temperature 98.5 F Temperature 98.8 F Temperature 98.4 F Temperature 98.7 F Temperature 98.3 F - Labs CBC & Chem 7: 11/25/19 03:41 11/25/19 03:41 Labs: Abnormal lab results 11/25/19 11/25/19 Range/Units 03:41 03:41 RDW 15.3 H (13.2-15.2) % Carbon Dioxide 20 L (22-30) mmol/L Creatinine 0.5 L (0.7-1.2) mg/dL Glucose 63 L (65-100) mg/dL
[2019-11-25] MEDS: HYDROmorphone 1 MG/1 ML INJ IV PRN (17:48)
[2019-11-25] MEDS: hydrALAZINE 20 MG/1 ML INJ IV PRN (22:55)
[2019-11-26] MEDS: METOPROLOL TARTRATE 5 MG/5 ML INJ IV SCH ×4 (01:35→18:45)
[2019-11-26] MEDS: LACTATED RINGERS 1,000 ML IV SCH ×3 (01:51→22:13)
[2019-11-26] MEDS: hydrALAZINE 20 MG/1 ML INJ IV PRN (04:24)
[2019-11-26] MEDS: PIPERACILLIN/TAZOBACTAM 3.375 3.375 GM/50 ML BAG IV SCH ×2 (05:26→13:30)
--- NOTE | 2019-11-26 10:35 | Progress Note ---
Assessment and Plan POD# 3 s/p laparoscopic omar patch repair of perforated gastric ulcer. post op UGI confirmed secure repair. Afebrile and stable. Will advance to full liquids today. If tolerates can possibly be discharged to home tomorrow from surgical a spect. Continue abx per ID. Subjective Date of service: 11/26/19 Patient Reports: Positive: feels better, tolerating liquids well. Negative: nausea (Pt has no complaints and tolerated liquids with no issues. ), vomiting Objective Vital Signs - 12hr 11/25/19 11/25/19 11/26/19 22:55 23:25 01:35 Temperature 97.5 F L Pulse Rate 93 H 107 H 98 H Respiratory 18 Rate Blood Pressure 176/67 143/61 165/61 O2 Sat by Pulse 97 Oximetry 11/26/19 11/26/19 11/26/19 04:16 04:24 07:00 Temperature 98.0 F Pulse Rate 87 87 100 H Respiratory 18 Rate Blood Pressure 170/67 170/67 158/65 O2 Sat by Pulse 95 Oximetry 11/26/19 11/26/19 08:00 09:41 Temperature 98.4 F Pulse Rate 78 Respiratory 18 20 Rate Blood Pressure 157/57 O2 Sat by Pulse 97 Oximetry - General physical appearance well developed, no distress, no pain - Respiratory normal expansion, normal respiratory effort - Abdomen soft, not tender, other (SERGE drain with sero>sanguinous fluid) - Labs 11/25/19 03:41 11/25/19 03:41
[2019-11-26 10:42] LABS: Basophils % (Auto) 0.2 % (0.0-1.8); Eosinophils # (Auto) 0.1 K/mm3 (0.0-0.4); Eosinophils % (Auto) 0.6 % (0.0-4.3); Hematocrit 34.1 % (30.3-42.9); Hemoglobin 11.5 gm/dl (10.1-14.3); Lymphocytes # (Auto) 1.3 K/mm3 (1.2-5.4); Lymphocytes % (Auto) 14.7 % (13.4-35.0); Mean Corpuscular HGB Conc 34 % (30-34); Mean Corpuscular Volume 90 fl (79-97); Monocytes # (Auto) 0.4 K/mm3 (0.0-0.8); Monocytes % (Auto) 4.1 % (0.0-7.3); Platelet Count 187 K/mm3 (140-440); Red Blood Count 3.77 M/mm3 (3.65-5.03); Red Cell Distribution Width 15.1 % (13.2-15.2)
[2019-11-26 11:00] LABS: BUN/Creatinine Ratio 20; Blood Urea Nitrogen 6 mg/dL (7-17); Calcium 8.3 mg/dL (8.4-10.2); Hemolysis Index 9
[2019-11-26] MEDS: PANTOPRAZOLE 40 MG INJ IV SCH ×2 (11:20→22:06)
[2019-11-26] MEDS: FLUCONAZOLE 400 MG 200 ML IV SCH (11:20)
--- NOTE | 2019-11-26 12:00 | Progress Note ---
Assessment and Plan Assessment and plan: Perforated gastric ulcer s/p repair 11/22/[address] Nieves, Surgeon continue Dilaudid for pain management Protonix surgeon following Hypertensive urgency Etiology may be related to pain, patient with no history of hypertension. Elevated Troponin cardiology consulted No chest pain 11/24/19 Patient with perforated gastric ulcer s/p repair. Less abd pain. Borderline elevated troponin nonspecific. 11/25/2019. Cardiology feels the elevated troponin is nonspecific. Echocardiogram revealed no significant abnormalities. Continue topical and IV antihypertensive medications until patient able to take p.o. Consider stress test as an outpatient. The patient is POD#2 s/p dx lap with omar patch repair of perforated gastric ulcer. Surgery to check status of repair with UGI tomorrow. Continue antibiotics(Zosyn) and n.p.o. status. ID following 11/26/2019. Case management to arrange for antibiotics recommended per ID of Zosyn and antifungalDiflucan. Advance oral diet as tolerated per surgery. Patient will likely discharge in a.m. with Augmentin 875 mg twice daily and fluconazole 200 mg p.o. daily until 11/28. History Interval history: No new issues overnight. Hospitalist Physical - Constitutional Vitals: Temp Pulse Resp BP Pulse Ox 98.4 F 78 20 157/57 97 11/26/19 09:41 11/26/19 09:41 11/26/19 09:41 11/26/19 09:41 11/26/19 09:41 General appearance: Present: no acute distress - EENT Eyes: Present: PERRL, EOM intact ENT: hearing intact, clear oral mucosa, dentition normal - Neck Neck: Present: supple, normal ROM - Respiratory Respiratory effort: normal Respiratory: bilateral: CTA - Cardiovascular Rhythm: regular Heart Sounds: Present: S1 & S2. Absent: gallop, rub - Extremities Extremities: no ischemia, No edema, Full ROM - Abdominal General gastrointestinal: soft, non-tender, non-distended, normal bowel sounds - Integumentary Integumentary: Present: clear, warm, dry - Neurologic Neurologic: CNII-XII intact, moves all extremities Results - Labs CBC & Chem 7: 11/26/19 10:22 11/26/19 10:22 Labs: Laboratory Last Values WBC 8.6 K/mm3 (4.5-11.0) 11/26/19 10:22 RBC 3.77 M/mm3 (3.65-5.03) 11/26/19 10:22 Hgb 11.5 gm/dl (10.1-14.3) 11/26/19 10: Hct 34.1 % (30.3-42.9) 11/26/19 10:22 MCV 90 fl (79-97) 11/26/19 10:22 MCH 31 pg (28-32) 11/26/19 10: MCHC 34 % (30-34) 11/26/19 10:22 RDW 15.1 % (13.2-15.2) 11/26/19 10:22 Plt Count 187 K/mm3 (140-440) 11/26/19 10:22 Lymph % (Auto) 14.7 % (13.4-35.0) 11/26/19 10: [place] % (Auto) 4.1 % (0.0-7.3) 11/26/19 10:22 Eos % (Auto) 0.6 % (0.0-4.3) 11/26/19 10:22 Baso % (Auto) 0.2 % (0.0-1.8) 11/26/19 10:22 Lymph # 1.3 K/mm3 (1.2-5.4) 11/26/19 10: [place] # 0.4 K/mm3 (0.0-0.8) 11/26/19 10:22 Eos # 0.1 K/mm3 (0.0-0.4) 11/26/19 10:22 Baso # 0.0 K/mm3 (0.0-0.1) 11/26/19 10:22 Seg Neutrophils % 80.4 % (40.0-70.0) H 11/26/19 10:22 Seg Neutrophils # 6.9 K/mm3 (1.8-7.7) 11/26/19 10:22 Sodium 141 mmol/L (137-145) 11/26/19 10:22 Potassium 3.3 mmol/L (3.6-5.0) L 11/26/19 10:22 Chloride 108.1 mmol/L (98-107) H 11/26/19 10:22 Carbon Dioxide 20 mmol/L (22-30) L 11/26/19 10:22 Anion Gap 16 mmol/L 11/26/19 10:22 BUN 6 mg/dL (7-17) L 11/26/19 10:22 Creatinine 0.3 mg/dL (0.7-1.2) L 11/26/19 10:22 Estimated GFR > 60 ml/min 11/26/19 10:22 BUN/Creatinine Ratio 20 % 11/26/19 10:22 Glucose 134 mg/dL (65-100) H 11/26/19 10:22 Calcium 8.3 mg/dL (8.4-10.2) L 11/26/19 10:22 Total Bilirubin 0.80 mg/dL (0.1-1.2) 11/22/19 16:50 AST 20 units/L (5-40) 11/22/19 16:50 ALT 12 units/L (7-56) 11/22/19 16:50 Alkaline Phosphatase 68 units/L (35-129) 11/22/19 16:50 Troponin T 0.059 ng/mL (0.00-0.029) H D 11/22/19 22:57 Total Protein 7.0 g/dL (6.3-8.2) 11/22/19 16:50 Albumin 3.9 g/dL (3.9-5) 11/22/19 16:50 Albumin/Globulin Ratio 1.3 % 11/22/19 16:50 Triglycerides 91 mg/dL (2-149) 11/22/19 16:50 Cholesterol 229 mg/dL (50-199) H 11/22/19 16:50 LDL Cholesterol Direct 168 mg/dL (50-130) H 11/22/19 16:50 HDL Cholesterol 49 mg/dL (40-59) 11/22/19 16:50 Cholesterol/HDL Ratio 4.67 % 11/22/19 16:50 Lipase 52 units/L (13-60) 11/22/19 16:50 Urine Color Yellow (Yellow) 11/22/19 23:40 Urine Turbidity Clear (Clear) 11/22/19 23:40 Urine pH 5.0 (5.0-7.0) 11/22/19 23:40 Ur Specific [place] 1.060 (1.003-1.030) H 11/22/19 23:40 Urine Protein <15 mg/dl mg/dL (Negative) 11/22/19 23:40 Urine Glucose (UA) Neg mg/dL (Negative) 11/22/19 23:40 Urine Ketones 80 mg/dL (Negative) 11/22/19 23:40 Urine Blood Neg (Negative) 11/22/19 23:40 Urine Nitrite Neg (Negative) 11/22/19 23:40 Urine Bilirubin Neg (Negative) 11/22/19 23:40 Urine Urobilinogen < 2.0 mg/dL (<2.0) 11/22/19 23:40 Ur Leukocyte Esterase Neg (Negative) 11/22/19 23:40 Urine WBC (Auto) 2.0 /HPF (0.0-6.0) 11/22/19 23:40 Urine RBC (Auto) 2.0 /HPF (0.0-6.0) 11/22/19 23:40 U Epithel Cells (Auto) 9.0 /HPF (0-13.0) 11/22/19 23:40 Urine Mucus 1+ /HPF 11/22/19 23:40 - Diagnostic Impressions Diagnostic Impressions: Echocardiogram 11/23/19 09:08 Transthoracic Echocardiogram Indication: Elevated troponin BP: 160/69 HR: 80 Conclusions *There is trace mitral regurgitation. *There is mild tricuspid regurgitation. *There is mild aortic regurgitation. *The left ventricular chamber size is normal. *Global left ventricular systolic function is normal. *The estimated ejection fraction is 50-55%. *Abnormal left ventricular diastolic filling is observed, consistent with impaired relaxation. *Right ventricular chamber size and systolic function are within normal limits. Findings Left Ventricle: The left ventricular chamber size is normal. Global left ventricular wall motion and contractility are within normal limits. Global left ventricular systolic function is normal. The estimated ejection fraction is 50-55%. Abnormal left ventricular diastolic filling is observed, consistent with impaired relaxation. Left Atrium: The left atrium is normal in size with no visual thrombus identified. Right Ventricle: The right ventricular chamber size and systolic function are within normal limits. Right Atrium: The right atrium appears normal. The interatrial septum appears normal. No atrial septal defect is demonstrated by color Doppler. Aortic Valve: The aortic valve is not well visualized. The aortic valve is trileaflet. There is mild aortic regurgitation. There is no evidence of aortic stenosis. Mitral Valve: The mitral valve leaflets are mildly thickened. There is trace of mitral regurgitation. There is no evidence of mitral stenosis. Tricuspid Valve: The tricuspid valve is not well visualized. The tricuspid valve leaflets are normal. There is mild tricuspid regurgitation. The right ventricular systolic pressure is calculated at 23.3 mmHg. There is no tricuspid stenosis. Pulmonic Valve: The pulmonic valve is not well visualized. There is no evidence of pulmonic regurgitation. There is no pulmonic stenosis. Pericardium: There is no pericardial effusion. Aorta: There is no dilatation of the ascending aorta. There is no dilatation of the aortic root. Venous: The inferior vena cava appears normal in size. There is a greater than 50% respiratory change in the inferior vena cava dimension. Measurements Chambers 2D Name Value Normal Range IVSd (2D) 0.99 cm (0.6 - 1.1) LVPWd (2D) 0.98 cm (0.6 - 1.1) LVIDd (2D) 4.17 cm (3.7 - 5.6) LVIDs (2D) 3.04 cm (2 - 3.8) LV FS (2D) 27.05 % - EF Teichholz (2D) 53.13 % - Ao root diameter (2D) 2.28 cm (2 - 3.7) Volumes/Mass Name Value Normal Range LA ESV SP 4CH (A/L) 31.07 ml - LA ESV SP 2CH (A/L) 30.65 ml - LA ESV BP (A/L) 34.05 ml - LA ESV SP 4CH (MOD) 26.35 ml - LA ESV SP 2CH (MOD) 29.89 ml - LA ESV BP (MOD) 30.55 ml - LA ESV BP (MOD) index 21.98 ml/m2 - LV EDV SP 4CH (MOD) 54.57 ml - LV ESV SP 4CH (MOD) 25.71 ml - EF SP 4CH (MOD) 52.88 % - LV EDV SP 2CH (MOD) 58.03 ml - LV ESV SP 2CH (MOD) 21.91 ml - EF SP 2CH (MOD) 62.24 % - LV EDV BP 56.81 ml - LV ESV BP 23.05 ml - BP EF (MOD) 59.42 % - Diastolic/Systolic Function Name Value Normal Range MV E-wave Vmax 0.6 m/sec - MV deceleration time 179.17 msec - MV A-wave Vmax 1.01 m/sec - MV E:A ratio 0.6 ratio - Aortic Valve Name Value Normal Range AV Vmax 1.31 m/sec - AV VTI 27.28 cm - AV peak gradient 6.9 mmHg - AV mean gradient 4.53 mmHg - LVOT diameter 2.08 cm - LVOT Vmax 0.82 m/sec - LVOT VTI 15.54 cm - LVOT peak gradient 2.7 mmHg - LVOT mean gradient 1.98 mmHg - SV LVOT 52.59 ml - VANI (continuity Vmax) 2.12 cm2 - VANI (continuity VTI) 1.93 cm2 - AR PHT 449.26 msec - AR peak gradient 70.87 mmHg - Tricuspid Valve Name Value Normal Range TR Vmax 2.25 m/sec - TR peak gradient 20.3 mmHg - RAP 3 mmHg - RVSP 23.3 mmHg - Pulmonic Valve/Qp:Qs Name Value Normal Range PV Vmax 0.98 m/sec - PV peak gradient 3.82 mmHg - MD end-diastolic Vmax 1.19 m/sec - RVOT Vmax 0.69 m/sec - RVOT peak gradient 1.94 mmHg - PV acceleration time 97.05 msec - Barcenas/IV: Voiding Method Bedpan IV Catheter Type [Right Hand] Peripheral IV IV Catheter Type [Left Forearm INT / Saline Lock ] IV Catheter Type [Right INT / Saline Lock Antecubital] IV Catheter Type [Left Wrist] INT / Saline Lock Active Medications - Current Medications Current Medications: Generic Name Dose Route Start Last Admin Trade Name Freq PRN Reason Stop Dose Admin Clonidine HCl 0.2 mg 11/23/19 09:00 11/23/19 11:16 Catapres-Tts Patch TD 0.2 mg Pedroza CANDIDA Administration Hydralazine HCl 10 mg 11/23/19 10:00 11/26/19 04:24 Apresoline IV 10 mg Q4HR PRN Administration SBP>160 or DBP>110 Hydromorphone HCl 0.5 mg 11/23/19 04:24 11/25/19 17:48 Dilaudid IV 0.5 mg Q3H PRN Administration Pain , Severe (7-10) Piperacillin Sod/Tazobactam Sod 3.375 gm in 50 mls @ 100 mls/hr 11/23/19 06:00 11/26/19 05:26 Zosyn/Ns 3.375gm/50ml IV 11/29/19 23:59 100 mls/hr Q8HR CANDIDA Administration Protocol Lactated Ringer's 1,000 mls @ 125 mls/hr 11/23/19 04:24 11/26/19 11:21 Lactated Ringers IV 125 mls/hr DIRECT CANDIDA Administration Fluconazole 200 mls @ 100 mls/hr 11/24/19 21:00 11/26/19 11:20 Diflucan IV 11/29/19 20:59 100 mls/hr Q24HR CANDIDA Administration Protocol Metoprolol Tartrate 2.5 mg 11/23/19 18:00 11/26/19 07:00 Metoprolol IV 2.5 mg Q6HR CANDIDA Administration Ondansetron HCl 4 mg 11/23/19 04:24 Zofran IV Q4H PRN Nausea And Vomiting Pantoprazole Sodium 40 mg 11/26/19 10:00 11/26/19 11:20 Protonix IV 40 mg BID CANDIDA Administration
--- NOTE | 2019-11-26 14:39 | Progress Note ---
Assessment and Plan Cultures: none Assessment: 79 y/o female with no medical history admitted on 11/22/2019 due to 7-day history of epigastric abdominal pain, 10 of 10, now with: #Acute gastric perforation with subsequent peritonitis: CT abd shows perforated peptic ulcer of the distal stomach with moderate pneumoperitoneum. Patient was taken to the OR and underwent laparascopic Rex patch repair, abdominal lavage on 11/23/2019, findings <1cm punctate perf on the anterior side of pylorus with free fluid. No evidence of sepsis. Tolerating fluids. Recommendations: stop zosyn IV and fluconazole IV q day start po augmentin 875 mg bid and fluconazole 200 mg po qday till 11/28 Will follow. Federica Peres MD Infectious Diseases Telephone Interceptor Operator [facility] ([facility]) M [phone] O [phone] Subjective Date of service: 11/26/19 Principal diagnosis: perf gastric ulcer; elevated trop Interval history: Feels better, no N/V/D Objective - Exam Narrative Exam: General appearance: Alert in NAD Eyes: anicteric sclerae, moist conjunctivae; no lid-lag; PERRLA HENT: Atraumatic; oropharynx clear Lungs: CTA, with normal respiratory effort and no intercostal retractions CV: RRR no murmur Abdomen: Soft, diffuse tenderness, lap surgical wounds with drain w serous drainage Extremities: no edema, no cyanosis Skin: No rash. Psych: no agitated Neuro: alert and oriented x 3. Moving all extermities - Constitutional Vitals: Vital Signs Temp Pulse Resp BP Pulse Ox 98.2 F 75 20 170/68 97 11/26/19 12:51 11/26/19 13:30 11/26/19 12:51 11/26/19 13:30 11/26/19 12:51 Temperature -Last 24 Hours Temperature 98.2 F Temperature 98.4 F Temperature 98.0 F Temperature 97.5 F Temperature 98.3 F Temperature 98.1 F - Labs CBC & Chem 7: 11/26/19 10:22 11/26/19 10:22 Labs: Abnormal lab results 11/26/19 11/26/19 Range/Units 10:22 10:22 Seg Neutrophils % 80.4 H (40.0-70.0) % Potassium 3.3 L (3.6-5.0) mmol/L Chloride 108.1 H (98-107) mmol/L Carbon Dioxide 20 L (22-30) mmol/L BUN 6 L (7-17) mg/dL Creatinine 0.3 L (0.7-1.2) mg/dL Glucose 134 H (65-100) mg/dL Calcium 8.3 L (8.4-10.2) mg/dL
[2019-11-26] MEDS ORDERED: FLUCONAZOLE 200 MG TAB PO SCH (15:00)
[2019-11-26] MEDS: AMOXICILLIN/K CLAV 875/125MG TAB PO SCH (15:52)
[2019-11-27] MEDS: METOPROLOL TARTRATE 5 MG/5 ML INJ IV SCH ×4 (00:39→17:29)
[2019-11-27] MEDS: AMOXICILLIN/K CLAV 875/125MG TAB PO SCH ×2 (00:39→09:46)
[2019-11-27] MEDS: PANTOPRAZOLE 40 MG INJ IV SCH (09:46)
[2019-11-27] MEDS: hydrALAZINE 20 MG/1 ML INJ IV PRN (09:48)
--- NOTE | 2019-11-27 09:54 | Discharge Summary ---
Providers - Providers Date of Admission: 11/22/19 19:41 Date of discharge: 11/27/19 Attending physician: MADAI NICOLE 11/22/19 19:30 Consult to Physician [CONS] Urgent Comment: Dr. Paul spoke with Dr. Nieves @ [phone] Consulting Provider: NAHUM NIEVES Physician Instructions: Reason For Exam: perforated peptic ulcer 11/23/19 10:43 Consult to Physician [CONS] Routine Comment: Consulting Provider: AMANUEL HAWKINS Physician Instructions: Reason For Exam: antibiotic recommendations - perf gastric ulcer 11/26/19 10:35 Physical Therapy Evaluation and Treat [CONS] Routine Comment: Reason For Exam: please eval for stabilityl with ambulation & trans [facility] Reason for admission: abd pain Condition: Stable Hospital course: 79-year-old female with no significant past medical history who was admitted on 11/22/2019 due to 7-day history of epigastric abd pain. Patient was found to have acute gastric perforation with subsequent peritonitis. CT scan revealed perforated peptic ulcer of the distal stomach and moderate pneumoperitoneum. The patient was taken to the OR and underwent laparoscopic Rex patch repair with abdominal lavage on 11/23/2019. Findings included less than 1 cm punctate perforation on the anterior side of the pylorus with free fluid. No evidence of sepsis. Patient was treated with IV antibiotics of Zosyn and fluconazole. ID and surgery saw the patient in consultation. ID recommends discharge with Augmentin and 75 mg twice daily and fluconazole 200 mg daily until 11/28. Dedicated discharge time 35 minutes. Disposition: TO HOME OR SELFCARE Time spent for discharge: 35 - Discharge Diagnoses (1) Peritonitis Status: Acute (2) Perforated peptic ulcer Status: Acute (3) Hypertension Status: Chronic Qualifiers: Hypertension type: essential hypertension Qualified Code(s): I10 - Essential (primary) hypertension Core Measure Documentation - Palliative Care Palliative Care/ Comfort Measures: Not Applicable - Core Measures Any of the following diagnoses?: none Exam - Constitutional Vitals: Temp Pulse Resp BP Pulse Ox 98.3 F 61 20 164/59 96 11/27/19 07:58 11/27/19 09:48 11/27/19 07:58 11/27/19 09:48 11/27/19 07:58 General appearance: Present: no acute distress, well-nourished - EENT Eyes: Present: PERRL ENT: hearing intact, clear oral mucosa - Neck Neck: Present: supple, normal ROM - Respiratory Respiratory effort: normal Respiratory: bilateral: CTA - Cardiovascular Heart Sounds: Present: S1 & S2. Absent: rub, click - Extremities Extremities: pulses symmetrical, No edema Peripheral Pulses: within normal limits - Abdominal General gastrointestinal: Present: soft, non-tender, non-distended, normal bowel sounds Female genitourinary: Present: normal - Integumentary Integumentary: Present: clear, warm, dry - Musculoskeletal Musculoskeletal: gait normal, strength equal bilaterally - Psychiatric Psychiatric: appropriate mood/affect, intact judgment & insight - Neurologic Neurologic: CNII-XII intact, moves all extremities Plan Activity: advance as tolerated Weight Bearing Status: Weight Bear as Tolerated Diet: regular Follow up with: DEREJE TIRADOHOLMESVILLE MD MECCA [Primary Care Provider] - 7 Days NAHUM NIEVES MD [Staff Physician] - 7 Days DEEPAK BACH MD [Staff Physician] - 7 Days Prescriptions: Amoxicillin/K Clav Tab [Augmentin 875MG TAB] 1 each PO Q12HR #6 tablet cloNIDine-TTS PATCH [Catapres-Tts 0.2mg Patch] 0.2 mg TD Pedroza #3 patch Fluconazole [Diflucan TAB] 200 mg PO QDAY #3 tablet
[2019-11-27] MEDS: LACTATED RINGERS 1,000 ML IV SCH (09:55)
[2019-11-27] MEDS ORDERED: FLUCONAZOLE 200 MG TAB PO SCH (10:00)
--- NOTE | 2019-11-27 11:56 | Progress Note ---
Assessment and Plan POD# 4 s/p laparoscopic omar patch repair of perforated gastric ulcer. post op UGI confirmed secure repair. Afebrile and stable. SERGE drain removed. Appreciate ID input and pt is to continue abx for two more days to complete course. Pt will be discharged home with serena and needs to follow up in the office to see me in two weeks. call for appointment [phone] She should continue with soft foods for a while and advance activity as tolerated. PT consult placed yesterday, unclear if it was completed in order to assess her mobility needs. Needs to be done prior to discharge. I spoke to the patient's daughter Patricia who expressed understanding and will assist mother upon discharge, and the patient's sister will be in town tomorrow to assist as well. Subjective Date of service: 11/27/19 Patient Reports: Positive: feels better, pain is less (no acute events overnight. Pt is tolerating full liquids with no problems.) Objective Vital Signs - 12hr 11/27/19 11/27/19 11/27/19 00:39 00:49 01:17 Temperature 98.7 F Pulse Rate 75 Pulse Rate [ Radial] Respiratory Rate Respiratory 16 Rate [Upper Abdomen] Blood Pressure 165/67 Blood Pressure [Left] O2 Sat by Pulse Oximetry 11/27/19 11/27/19 11/27/19 03:44 04:00 04:16 Temperature 98.0 F 98.0 F Pulse Rate 60 80 Pulse Rate [ Radial] Respiratory 17 16 Rate Respiratory Rate [Upper Abdomen] Blood Pressure 163/79 Blood Pressure 163/79 [Left] O2 Sat by Pulse 96 Oximetry 11/27/19 11/27/19 11/27/19 05:44 07:58 08:00 Temperature 98.3 F Pulse Rate 66 63 Pulse Rate [ 66 Radial] Respiratory 20 19 Rate Respiratory Rate [Upper Abdomen] Blood Pressure 143/50 167/61 Blood Pressure [Left] O2 Sat by Pulse 96 Oximetry 11/27/19 11/27/19 09:48 10:00 Temperature Pulse Rate 61 69 Pulse Rate [ Radial] Respiratory Rate Respiratory Rate [Upper Abdomen] Blood Pressure 164/59 Blood Pressure [Left] O2 Sat by Pulse Oximetry - General physical appearance well developed, no distress, no pain - Respiratory normal expansion, normal respiratory effort - Abdomen soft, other (SERGE drain serous, incisions c/d/i, appropriatley tender to palpation) - Labs 11/26/19 10:22 11/26/19 10:22
[2019-11-27] MEDS ORDERED: ACETAMINOPHEN 325 MG TAB PO SCH (12:00)
[2019-11-27 12:01] VITALS: BP 150/59
--- NOTE | 2019-11-27 16:18 | Progress Note ---
Assessment and Plan Cultures: none Assessment: 79 y/o female with no medical history admitted on 11/22/2019 due to 7-day history of epigastric abdominal pain, 10 of 10, now with: #Acute gastric perforation with subsequent peritonitis: CT abd shows perforated peptic ulcer of the distal stomach with moderate pneumoperitoneum. Patient was taken to the OR and underwent laparascopic Rex patch repair, abdominal lavage on 11/23/2019, findings <1cm punctate perf on the anterior side of pylorus with free fluid. No evidence of sepsis. Tolerating fluids. Recommendations: continue po augmentin 875 mg bid and fluconazole 200 mg po qday till 11/28 Will sign off Federica Peres MD Infectious Diseases Ballet Teacher [facility] ([facility] M [phone] O [phone] Subjective Date of service: 11/27/19 Principal diagnosis: perf gastric ulcer; elevated trop Interval history: Feels better, tolerating diet Objective - Exam Narrative Exam: General appearance: Alert in NAD Eyes: anicteric sclerae, moist conjunctivae; no lid-lag; PERRLA HENT: Atraumatic; oropharynx clear Lungs: CTA, with normal respiratory effort and no intercostal retractions CV: RRR no murmur Abdomen: Soft, diffuse tenderness, lap surgical wounds with drain w serous drainage Extremities: no edema, no cyanosis Skin: No rash. Psych: no agitated Neuro: alert and oriented x 3. Moving all extermities - Constitutional Vitals: Vital Signs Temp Pulse Resp BP Pulse Ox 99.3 F 81 20 150/59 96 11/27/19 11:58 11/27/19 12:01 11/27/19 11:58 11/27/19 12:01 11/27/19 11:58 Temperature -Last 24 Hours Temperature 99.3 F Temperature 98.3 F Temperature 98.0 F Temperature 98.0 F Temperature 98.7 F Temperature 99.9 F Temperature 97.3 F Temperature 98.6 F - Labs CBC & Chem 7: 11/26/19 10:22 11/26/19 10:22
== END 2019-11-27 18:22 | disposition home health service (06) | DRG 326 ==
LOC: EDBD 15:55 → ED 15:55 → 4A 19:41
PROVIDERS: ADMIT Internal Medicine; ATTEND Hospitalist
PROC: 0DJ04ZZ Inspection of Upper Intestinal Tract, Percutaneous Endoscopic Approach (ICD-10-PCS; principal; 2019-11-23)
PROC: 0DU647Z Supplement Stomach with Autologous Tissue Substitute, Percutaneous Endoscopic Approach (ICD-10-PCS; 2019-11-23)
PROC: 3E1M38Z Irrigation of Peritoneal Cavity using Irrigating Substance, Percutaneous Approach (ICD-10-PCS; 2019-11-23)
DX: K25.1 Acute gastric ulcer with perforation (principal); K65.9 Peritonitis, unspecified; I16.0 Hypertensive urgency; Z90.49 Acquired absence of other specified parts of digestive tract; Z82.49 Family history of ischemic heart disease and other diseases of the circulatory system; I10 Essential (primary) hypertension
CPT/HCPCS: 36415; 74176; 74177; 74240; 80048; 80053; 80061; 81001; 83690; 84484; 85025; 85027; 93005; 93306; G0378; A4217; C9113; J0330; J0360; J0690; J1170; J1450; J2270; J2370; J2405; J2543; J2704; J2710; J3010; J7030; J7120; Q9963; Q9967